=== PATIENT | male | born 1950 | race Hispanic/Latino ===

== ENCOUNTER 2018-08-28 18:58 | Inpatient (IN) ==
[2018-08-28 19:37] LABS: BASO# 0.05 X1000 (0.0-0.2); BASO% 0.5 % (0.0-0.8); EOS# 1.54 X1000 (0.0-0.7); HEMATOCRIT 42.8 % (42.0-52.0); HEMOGLOBIN 15.2 g/dL (14.0-18.0); IMM GRAN# 0.02 X1000 (0.0-0.04); IMM GRAN% 0.2 % (0.0-0.5); LYMPH# 3.16 X1000 (1.2-3.4); LYMPH% 30.9 % (20.5-51.1); MCH 30.1 PG (27-31); MCHC 35.5 g/dL (33-37); MCV 84.8 FL (81-99); MONO% 8.8 % (1.7-9.3); MPV 9.8 FL (7.4-10.4); NEUT# 4.57 X1000 (1.4-6.5); NEUT% 44.6 % (42.2-75.2); PLT 267 X1000 (130-400); RBC 5.05 XMIL (4.7-6.1); RDW 13.3 % (11.5-14.5); WBC 10.24 X1000 (4.8-10.8)
--- NOTE | 2018-08-28 19:50 | Diag Imaging Result Doc PS360 ---
EXAM: FLAT/UPRIGHT ABD/1 VIEW CHEST INDICATION: abd pain TECHNIQUE: 3 views COMPARISON: 06/10/2018 FINDINGS: There is advanced degenerative arthropathy throughout the spine. There are unremarkable bowel gas and stool patterns. There is no obstructive bowel pattern. There is no evidence of large volume free abdominal gas. There is no evidence of organomegaly. The lungs are grossly clear. There is no discrete pleural fluid collection or pneumothorax. The cardiomediastinal silhouette and central vasculature are grossly unremarkable. IMPRESSION: No evidence of acute pathology by plain radiograph. Electronically signed by Nikunj Greco 08/28/2018 7:48 PM
[2018-08-28 19:58] LABS: AGAP 13; ALBUMIN 4.3 g/dL (3.5-5.0); ALKALINE PHOSPHATASE 74 U/L (32-122); BUN 12 mg/dL (8-22); CALCIUM 8.9 mg/dL (8.8-10.2); CHLORIDE 94 mmol/L (98-107); COSMO 260; CREATININE 0.9 mg/dL (0.7-1.2); ESTIMATED GFR > 60; GLUCOSE 126 mg/dL (70-104); GOT 34 U/L (10-34); GPT 24 U/L (10-44); POTASSIUM 3.9 mmol/L (3.5-5.1); SODIUM 129 mmol/L (136-145); TCO2 23 mmol/L (25-35); TOTAL PROTEIN 7.4 g/dL (6.3-8.3)
[2018-08-28 21:25] LABS: BILIRUBIN URINE NEGATIVE (NEGATIVE); BLOOD URINE NEGATIVE (NEGATIVE); GLUCOSE URINE NEGATIVE (NEGATIVE); KETONE URINE NEGATIVE (NEGATIVE); LEUKOCYTES URINE TRACE (NEGATIVE); NITRITE URINE NEGATIVE (NEGATIVE); PROTEIN URINE NEGATIVE (NEGATIVE); UROBILINOGEN URINE NORMAL
[2018-08-28 21:26] LABS: CLARITY CLEAR (CLEAR); COLOR YELLOW
[2018-08-28 21:28] LABS: URINE BACTERIA 1+ /HFP; URINE EPITHELIAL CELLS <10 /HPF (<10); URINE WBC <10 /HPF (<10)
[2018-08-28 21:30] LABS: URINE CAST NONE SEEN /LPF; URINE CRYSTAL NONE SEEN /HPF; URINE SMALL ROUND CELLS RENAL PRESENT; URINE SOURCE CLEAN CATCH; URINE YEAST NONE SEEN /HPF
[2018-08-28] MEDS ORDERED: G.I. COCKTAIL PO ONE (21:49)
[2018-08-28] MEDS ORDERED: ZOFRAN IV ONE (21:49)
[2018-08-28] MEDS ORDERED: PEPCID IV ONE (21:49)
[2018-08-28] MEDS ORDERED: PROTONIX IV ONE (21:49)
[2018-08-28] MEDS ORDERED: SODIUM CHLORIDE 0.9% INJ ONE ×2 (21:49)
[2018-08-28] MEDS ORDERED: M.V.I.-12 10 ML, FOLIC ACID 1 MG, MAGNESIUM SULFATE 1 GM, THIAMINE 100 MG in NS 1,000 ML IV ONE (21:54)
[2018-08-28] MEDS ORDERED: ROCEPHIN 1 GM in NS 50 ML IV ONE (22:45)
--- NOTE | 2018-08-28 23:58 | PROVIDER DOCUMENTATION ---
This chart was entered by Sury Greco Scribe, acting as scribe for Percy Dumont MD. HPI-Abdominal Pain/GI Problem - General Chief Complaint: Abdominal Pain Stated Complaint: ETOH ABUSE/STOMACH PAIN, VOMITING Time Seen by Provider: 08/28/18 21:21 Source: patient, family Allergies/Adverse Reactions: Patient Allergies Allergy/AdvReac Type Severity Reaction Status Date / Time No Known Allergies Allergy Verified 06/10/18 15:22 Home Medications: Home Medication List Medication Instructions Recorded Confirmed Last Taken Type Amlodipine Besylate 10 mg PO DAILY 06/10/18 06/10/18 06/09/18 08:00 History Fluticasone Propionate 2 spray INH DAILY PRN 06/10/18 06/10/18 05/10/18 08:00 History Hydroxyzine HCl 50 mg PO Q6HR 06/10/18 06/10/18 06/10/18 08:00 History Pantoprazole Sodium 40 mg PO DAILY 06/10/18 06/10/18 06/10/18 08:00 History Quetiapine Fumarate 50 mg PO HS 06/10/18 06/10/18 06/09/18 21:00 History Trazodone [Desyrel] 100 - 200 mg PO HS 06/10/18 06/11/18 06/09/18 21:00 History Ibuprofen 800 mg PO TID PRN PRN #30 tab 06/11/18 Unknown Rx - History of Present Illness-ABD Nature of Presenting Problems: pt is a 67 yom that c/o generalized abd pain, urinary retention, constipation, and vx2 w/black emesis. pt had a small BM today that was yellow, but has had normal BM in 3 days. pt is a severe etoh abuser, has drank every day since 15 yo. drinks 12-15 gabriel beers/day. pt drinks and doesn't eat until late at night. pt has hx of cirrosis, htn, and preDM. pt has scope done 5 yrs ago, had spot. pt denies chf, pancreatitis and stents. Review of Systems - Adult - REVIEW OF SYSTEMS - ADULT Constitutional: reports: no symptoms reported. denies: chills, fever, fatique Eyes: reports: no symptoms reported Ears, Nose, Mouth & Throat: reports: no symptoms reported Cardiovascular: reports: no symptoms reported. denies: chest pain, orthopnea, palpitations Respiratory: reports: no symptoms reported. denies: cough, shortness of breath, wheezing Gastrointestinal: reports: see HPI, abdominal pain, constipation, vomiting (x2 black emesis today). denies: hematemesis, diarrhea, rectal bleeding Genitourinary: reports: see HPI, urinary retention. denies: dysuria, discharge, frequency Musculoskeletal: reports: no symptoms reported Integumentary: reports: no symptoms reported Neurological: reports: no symptoms reported Psychiatric: reports: no symptoms reported Endocrine: reports: no symptoms reported Hematologic/Lymphatic: reports: no symptoms reported Allergic/Immunologic: reports: no symptoms reported All Other Systems: Reviewed and Negative Past History - Adult - PAST MEDICAL HISTORY-ADULT Review of Records: reports: Old Records Reviewed, Nursing Assessment Review, Me dications Reviewed, Social history reviewed & non-contributory. Major Childhood Illnesses: reports: denies history Cardiovascular: reports: denies history Respiratory: reports: denies history Gastrointestinal: reports: liver disease Obstetrical/Gynecological: reports: denies history Genitourinary: reports: denies history Musculoskeletal: reports: denies history Neurological: reports: denies history Endocrine/Immune: reports: denies history Other Conditions: reports: denies history - PRIOR SURGERIES/PROCEDURES Surgical/Procedure History: reports: other - IMMUNIZATION STATUS Childhood Immunizations: See Nurse Assessment Flu Vaccine: See Nurse Assessment - FAMILY HISTORY Family History: reviewed, not pertinent - SOCIAL HISTORY Smoking: cigarettes, less than 1 pack/day Provider spent 3-5 mins advising pt. on dangers of tobacco.: Discussed manners to quit use, and f/u contacts for add'l counseling. Substance Use: alcohol Alcohol Use Frequency: every day Number of drinks per typical drinking period:: 11-15 drinks Physical Exam-General - PHYSICAL EXAM-ADULT Initial Vital Signs Reviewed: Yes - CONSTITUTIONAL General Appearance: appears well, alert, no apparent distress - EYES Eyes: PERRL/EOMI, pink conjunctivae - HEAD, EARS, NOSE, MOUTH & THROAT HENMT: normocephalic/atraumatic, moist mucous membranes, normal ENT inspection - NECK Neck: non-tender, full range of motion, supple, normal inspection - RESPIRATORY Respiratory: chest non-tender, lungs clear, normal breath sounds - CARDIOVASCULAR Cardiovascular: normal peripheral pulses, regular rate, rhythm - GASTROINTESTINAL (ABDOMEN) Abdominal Exam: normal bowel sounds, soft, no organomegaly, no pulsatile mass, tenderness (moderate upper abd tenderness to palp, minimal rlq tenderness to palp). negative: non tender, guarding, rigid, rebound - LYMPHATIC Lymphatic: no adenopathy - MUSCULOSKELETAL Back Exam: normal inspection, no CVA tenderness, no vertebral tenderness Extremity: normal range of motion, non-tender, normal inspection Peripheral Pulses: radial (R): 2+, radial (L): 2+ - SKIN Integumentary: normal color, normal turgor, warm/dry - NEUROLOGIC Neurologic: grossly normal, no motor/sensory deficits - PSYCHIATRIC Psych/Mental Status: normal mood/affect, normal thought content, normal thought process, oriented x 3 Progress - PLAN OF CARE/RESULTS Progress/Plan/Lab Results: Vital Signs - 8 hr 08/28/18 19:11 Temperature 98.0 F Pulse Rate 67 Respiratory Rate 18 Blood Pressure 111/75 O2 Sat by Pulse Oximetry 93 L Laboratory Results - last 24 hr 08/28/18 08/28/18 08/28/18 19:20 19:20 19:20 WBC 10.24 RBC 5.05 Hgb 15.2 Hct 42.8 MCV 84.8 MCH 30.1 MCHC 35.5 RDW Std Deviation 13.3 Plt Count 267 MPV 9.8 Immature Gran % (Auto) 0.2 Neut % (Auto) 44.6 Lymph % (Auto) 30.9 [place] % (Auto) 8.8 Eos % (Auto) 15.0 H Baso % (Auto) 0.5 Immature Gran # (Auto) 0.02 Neut # (Auto) 4.57 Lymph # (Auto) 3.16 [place] # (Auto) 0.90 H Eos # (Auto) 1.54 H Baso # (Auto) 0.05 Sodium 129 L Potassium 3.9 Chloride 94 L Carbon Dioxide 23 L Anion Gap 13 BUN 12 Creatinine 0.9 Estimated GFR/1.73 m2 > 60 BUN/Creatinine Ratio 13 Glucose 126 H Calculated Osmolality 260 Calcium 8.9 Total Bilirubin 0.40 AST 34 ALT 24 Alkaline Phosphatase 74 Total Protein 7.4 Albumin 4.3 Globulin 3.0 Albumin/Globulin Ratio 1.0 Amylase 53 Lipase Urine Source Urine Color Urine Clarity Urine pH Ur Specific [place] Urine Protein Urine Ketones Urine Blood Urine Nitrite Urine Bilirubin Urine Urobilinogen Urine Microscopic RBC Urine WBC Urine Microscopic WBC Ur Epithelial Cells Urine Crystals Small Round Cells Urine Bacteria Urine Casts Urine Yeast Urine Glucose 08/28/18 08/28/18 19:20 21:04 WBC RBC Hgb Hct MCV MCH MCHC RDW Std Deviation Plt Count MPV Immature Gran % (Auto) Neut % (Auto) Lymph % (Auto) [place] % (Auto) Eos % (Auto) Baso % (Auto) Immature Gran # (Auto) Neut # (Auto) Lymph # (Auto) [place] # (Auto) Eos # (Auto) Baso # (Auto) Sodium Potassium Chloride Carbon Dioxide Anion Gap BUN Creatinine Estimated GFR/1.73 m2 BUN/Creatinine Ratio Glucose Calculated Osmolality Calcium Total Bilirubin AST ALT Alkaline Phosphatase Total Protein Albumin Globulin Albumin/Globulin Ratio Amylase Lipase 46 Urine Source CLEAN CATCH Urine Color YELLOW Urine Clarity CLEAR Urine pH 5.0 Ur Specific [place] 1.010 Urine Protein NEGATIVE Urine Ketones NEGATIVE Urine Blood NEGATIVE Urine Nitrite NEGATIVE Urine Bilirubin NEGATIVE Urine Urobilinogen NORMAL Urine Microscopic RBC Not Reportable Urine WBC TRACE A Urine Microscopic WBC <10 Ur Epithelial Cells <10 Urine Crystals NONE SEEN Small Round Cells RENAL PRESENT Urine Bacteria 1+ Urine Casts NONE SEEN Urine Yeast NONE SEEN Urine Glucose NEGATIVE Orders Category Date Time Status NPO Except MEDICATIONS Diet 08/28/18 19:[address] ABD/PELVIS W/IV CONT ONLY [CT] Stat Exams 08/28/18 21:51 Ordered flat [FLAT/UPRIGHT ABD/1 VIEW CHEST] [RAD] Stat Exams 08/28/18 19:19 Completed AMYLASE [CHEM] Stat Lab 08/28/18 19:20 Completed CBC WITH DIFF [HEME] Stat Lab 08/28/18 19:20 Completed COMPREHENSIVE METABOLIC PANEL [CHEM] Stat Lab 08/28/18 19:20 Completed LIPASE [CHEM] Stat Lab 08/28/18 19:20 Completed OCCULT BLOOD NON-FECES Stat Lab 08/28/18 21:54 Uncollected TYPE & SCREEN [BBK] Stat Lab 08/28/18 21:[address] W/POSS RFLX CULT [URINALYSIS] Stat Lab 08/28/18 21:04 Completed URINE CULTURE [RM] Routine Lab 08/28/18 21:30 Ordered Famotidine [Pepcid] Med 08/28/18 21:49 Discontinued 20 mg IV NOW ONE Lido/Estrada Alk/Al&mg Hydrox [G.i. Cocktail] Med 08/28/18 21:49 Discontinued 30 ml PO NOW ONE Mvi [M.v.i.-12] 10 ml Med 08/28/18 21:54 Active Folic Acid 1 mg Magnesium Sulfate 1 gm Thiamine 100 mg 0.9% Sodium Chloride Inj [Ns] 1,000 ml IV NOW Ondansetron [Zofran] Med 08/28/18 21:49 Discontinued 4 mg IV NOW ONE Pantoprazole [Protonix] Med 08/28/18 21:49 Discontinued 40 mg IV NOW ONE Sodium Chloride 0.9% Med 08/28/18 21:49 Discontinued 10 ml INJ NOW ONE Sodium Chloride 0.9% Med 08/28/18 21:49 Discontinued 5 - 10 ml INJ NOW ONE Result Diagrams: 08/28/18 19:20 08/28/18 19:20 - CONSULTS/PCP/HOSPITALIST Notification #1 *Consult/PCP/Hospitalist*: Dr. Mendoza Time Discussed: 23:28 Consult Disposition: Admit (Dr. Dumont discussed pt w/Dr. mendoza.) #2 Consult: Dr. bernal Time Discussed: 23:41 Consult Disposition: Admit, other (WILL CONSULT) Departure - Departure Date of Disposition Decision: 08/28/18 Time of Disposition Decision: 23:56 DIAGNOSIS: Abdominal pain, Upper GI bleed, Chronic alcohol dependence, continuous Disposition: ADMITTED INPATIENT 09 Certified Medical Emergency: Emergent Condition: Stable Referrals and Follow-Ups: Yoel Rivero CRNP [Primary Care Provider] - - Critical Care Note This patient required my direct & personal management of CC.: No Attestation - Physician/ TRAMAINE Attestation Patient care was provided by Advanced Practice Provider:: No The physician spent face to face time with patient:: Yes Advanced Practice Provider documentation review:: Supervising physician onsite and consulted in the evaluation and care of this patient. The physician did have a face to face encounter with the patient. This chart was documented by the indicated scribe, (Sury Greco Scribe) and accurately reflects the services I performed and decisions made by me, Percy Dumont MD, as attested by the provider's signature.
[2018-08-29] MEDS ORDERED: NS 1,000 ML IV ONE (03:16)
[2018-08-29] MEDS ORDERED: ZOFRAN IV PRN (03:16)
[2018-08-29] MEDS ORDERED: MORPHINE IV PRN ×2 (03:16→06:40)
[2018-08-29 04:40] LABS: UR AMPHETAMINES QUAL PRESUMPTIVE POSITIVE (NONE DETECT); UR BARBITUATES QUAL NONE DETECTED (NONE DETECT); UR BENZODIAZEPIN QUAL PRESUMPTIVE POSITIVE (NONE DETECT); UR CANNABINOIDS QUAL NONE DETECTED (NONE DETECT); UR COCAINE QUAL NONE DETECTED (NONE DETECT); UR METHADONE QUAL NONE DETECTED (NONE DETECT); UR METHAMPHETAMINE QUAL PRESUMPTIVE POSITIVE (NONE DETECT); UR OPIATES QUAL NONE DETECTED (NONE DETECT); UR OXYCODONE QUAL NONE DETECTED (NONE DETECT); UR PCP QUAL PRESUMPTIVE POSITIVE (NONE DETECT); UR PROPOXYPHENE QUAL NONE DETECTED (NONE DETECT); UR TCA QUAL NONE DETECTED (NONE DETECT)
[2018-08-29 05:28] LABS: INR 0.92; PROTIME 12.8 Seconds (11.0-16.0)
[2018-08-29 05:29] LABS: PTT 28.7 Seconds (22.3-41.8)
[2018-08-29 05:34] LABS: HEMATOCRIT 40.9 % (42.0-52.0); HEMOGLOBIN 14.4 g/dL (14.0-18.0)
[2018-08-29 06:14] LABS: AGAP 12; CHLORIDE 103 mmol/L (98-107); GLUCOSE 96 mg/dL (70-104); POTASSIUM 3.7 mmol/L (3.5-5.1); SODIUM 139 mmol/L (136-145); TCO2 24 mmol/L (25-35)
[2018-08-29 06:15] LABS: ALB/GLOB RATIO 1.6; ALBUMIN 3.9 g/dL (3.5-5.0); ALKALINE PHOSPHATASE 60 U/L (32-122); BUN 11 mg/dL (8-22); CALCIUM 8.4 mg/dL (8.8-10.2); COSMO 277; CREATININE 0.9 mg/dL (0.7-1.2); ESTIMATED GFR > 60; GOT 26 U/L (10-34); GPT 20 U/L (10-44); MAGNESIUM 1.9 mg/dL (1.5-2.7); TOTAL BILIRUBIN 0.32 mg/dL (0.20-1.00); TOTAL PROTEIN 6.3 g/dL (6.3-8.3)
[2018-08-29] MEDS ORDERED: NICODERM PATCH TD PRN (06:35)
--- NOTE | 2018-08-29 09:24 | Diag Imaging Result Doc PS360 ---
EXAM: CT ABD/PELVIS W/IV CONT ONLY INDICATION: UPPER AND RLQ PAIN/TENDER TECHNIQUE: This exam was performed using automated exposure control, adjustment of mA or kV according to patient size, and/or use of iterative reconstruction technique. COMPARISON: None. FINDINGS: The gallbladder is contracted and is unremarkable, otherwise. The liver, spleen, pancreas, adrenal glands, kidneys, and urinary bladder are essentially unremarkable. The appendix is not well seen. However, there is no sign of appendicitis. There is minimal stranding associated with the ascending colon suggesting very mild colitis. There is very little if any wall thickening. There is no obstructive bowel pattern. The remainder of the GI tract is grossly unremarkable. There is moderate aortoiliac atherosclerotic calcification. There is multilevel spondylosis. There is no evidence of acute osseous abnormality. IMPRESSION: Very subtle inflammatory stranding associated with the ascending colon suggesting nonspecific mild colitis, probably infectious. Please correlate clinically. Electronically signed by Nikunj Greco 08/29/2018 9:22 AM
[2018-08-29] MEDS: NEXIUM IV SCH ×2 (09:46→21:51)
[2018-08-29] MEDS: LIBRIUM PO SCH ×3 (09:46→21:51)
[2018-08-29 10:43] LABS: HEMATOCRIT 40.5 % (42.0-52.0); HEMOGLOBIN 14.2 g/dL (14.0-18.0)
[2018-08-29 12:49] LABS: HEMATOCRIT 42.7 % (42.0-52.0); HEMOGLOBIN 14.6 g/dL (14.0-18.0)
[2018-08-29 17:27] LABS: HEMATOCRIT 41.4 % (42.0-52.0); HEMOGLOBIN 14.4 g/dL (14.0-18.0)
--- NOTE | 2018-08-29 21:38 | EKG Report ---
Test Performed on : 08/29/2018 09:11:12 AM Test Reason : Epigastric Pain/ Chest Pain Blood Pressure : / mmHG Vent. Rate : 053 BPM Atrial Rate : 053 BPM P-R Int : 134 ms QRS Dur : 082 ms QT Int : 474 ms P-R-T Axes : 038 -25 015 degrees QTc Int : 444 ms Sinus bradycardia. Otherwise normal ECG When compared with ECG of 10-JUN-2018 21:35, No significant change was found Confirmed by Roberto Gonzalez MD ([id number]) on 08/30/2018 12:28:30 PM
[2018-08-29] MEDS: ATIVAN IV PRN (21:43)
[2018-08-30] MEDS: LIBRIUM PO SCH ×4 (03:02→21:50)
[2018-08-30 07:12] LABS: HEMATOCRIT 42.6 % (42.0-52.0); HEMOGLOBIN 14.4 g/dL (14.0-18.0); MCH 30.6 PG (27-31); MCHC 33.8 g/dL (33-37); MCV 90.4 FL (81-99); MPV 10.1 FL (7.4-10.4); RBC 4.71 XMIL (4.7-6.1)
[2018-08-30 07:30] LABS: AGAP 10; BUN 7 mg/dL (8-22); CALCIUM 8.6 mg/dL (8.8-10.2); CHLORIDE 106 mmol/L (98-107); COSMO 276; CREATININE 0.8 mg/dL (0.7-1.2); ESTIMATED GFR > 60; GLUCOSE 101 mg/dL (70-104); POTASSIUM 3.8 mmol/L (3.5-5.1); SODIUM 139 mmol/L (136-145); TCO2 23 mmol/L (25-35)
[2018-08-30] MEDS: NEXIUM IV SCH ×2 (10:11→21:50)
--- NOTE | 2018-08-30 12:25 | HISTORY AND PHYSICAL ---
CHIEF COMPLAINT: Abdominal pain. HISTORY OF PRESENT ILLNESS: Mr. Dai is a 67-year-old male who presented to the ER on 08/28/2018 with complaints of abdominal pain and coffee-ground emesis. The patient states that approximately 3 days ago, he began having what was initially right and left lower quadrant abdominal pain that he states now is more in his epigastric area. He states that he still has some generalized soreness, though the pain at this time is in the epigastric area. He describes it as sharp and intermittent. He also reports that he has had nausea and has also had coffee- ground emesis as well. He reports a sore throat, but this may be secondary to his vomiting episodes. He also reports some dizziness as well. The patient did report that he had had some constipation though this has subsided. He states that he has had a recent bowel movement. He denies any hematochezia or melena. He did report that he felt as though he was having some difficulty urinating but states that he has been urinating fine at this time. He denies any shortness of breath, chest pain or cough. The patient does report that he has some occasional swelling in his lower extremities though this is not present or has not worsened at this time. He does have nicotine and alcohol abuse. He smokes currently half a pack of cigarettes per day. He also drinks daily as well, reporting that he drinks approximately 12 to 15 beers a day. The patient has been abusing alcohol since he was a teenager. He also reports that he has been told that he has cirrhosis of the liver. He does report also that he has had previous abdominal surgeries for bowel obstruction. Upon evaluation in the ER, the patient was noted to have some abdominal tenderness on his right upper and lower abdomen. Given this, initially an abdominal x-ray was performed that showed no evidence of acute pathology, but they did perform a CT abdomen and pelvis without contrast only, the overnight radiologist reported it to show some mild thickening of the ascending colon and cecum. This could be associated with underlying infectious or inflammatory colitis. There was no bowel obstruction. There was no evidence of appendicitis. His hemoglobin and hematocrit are stable at this time. Most recent readings were 14.4 and 40.9. His electrolytes are sodium 129, potassium 3.9, chloride 94, magnesium 1.4, though since this time, the patient has received a banana bag. He is also receiving fluid hydration with normal saline 100 mL per hour. The patient had been complaining of intermittent left chest pain that radiated across to his right chest and down his bilateral arms that has been ongoing for a few months now. He states that when it comes on, it is sharp. He states this comes on when he is at rest or exerting himself. We will add on a EKG and troponin for further check of this. The patient is denying any chest pain at present. REVIEW OF SYSTEMS: A 14-point review of systems was conducted with the patient and all were negative except for positives mentioned above in HPI. PAST MEDICAL HISTORY: 1. Hypertension. 2. Gastroesophageal reflux disease. 3. Insomnia. 4. Chronic back pain. 5. Anxiety. PAST SURGICAL HISTORY: Reported history of abdominal surgeries secondary to bowel obstructions x3. SOCIAL HISTORY: The patient is a current every day smoker and smokes currently half pack of cigarettes per day. He does report that he abuses alcohol daily. He drinks 15 beers a day and has been drinking since he was a teenager though I do not think that he has been drinking that amount daily since that age. He does report a previous history of drug abuse with pain pills but denies any at this time. The patient reports that he was born in [place] but was adopted and that is how he ended up in the [facility]. He is from [place] and has recently relocated here within the last year. FAMILY HISTORY: The patient does not know any of his biological family history due to he is adopted. ALLERGIES: Patient has no known allergies. HOME MEDICATIONS: We are awaiting the patient's home medication list to be updated and verified though when he was just recently discharged in May 2018, he was discharged home with: 1. Hydroxyzine 50 mg 6 hours. 2. Seroquel 50 mg p.o. at bedtime. 3. Amlodipine 10 mg p.o. daily. 4. Protonix 40 mg p.o. daily. 5. Trazodone 100 mg p.o. at bedtime. We are awaiting his medications to be reconciled at this time. DIAGNOSTIC DATA: White blood cell count is 10,240, hemoglobin 15.2, hematocrit 32.8, with the most recent hemoglobin being 14.4 and hematocrit 40.9, platelet count 267,000. PT 12.8, INR 0.92, PTT 28. Sodium 129, potassium 3.9, chloride 94, serum bicarb 23, BUN 12, creatinine 0.9, GFR greater than 60, glucose 126, calcium 8.9, magnesium 1.4. Liver function tests are within normal limits. Troponin is less than 0.01. Amylase 53, lipase 46. Urinalysis was obtained via clean catch which was positive for trace white blood cells though was negative for protein, ketones, blood, nitrites. Urine drug screen was positive for phencyclidine, amphetamines, methamphetamines, and benzodiazepines. EKG showed sinus bradycardia at a rate of 53 with a QTC of 444. Abdomen x-ray with 1 view chest showed no evidence of acute pathology. This is per Radiology. CT abdomen and pelvis without contrast only showed mild thickening of the ascending colon and cecum. This can be associated with underlying infectious and/or inflammatory colitis but there is no bowel obstruction, no evidence of ascites. PHYSICAL EXAMINATION: VITAL SIGNS: Temperature 97.6, heart rate 59, respirations 19, blood pressure 115/67 with oxygen saturation of 97% on room air. on room air. GENERAL: Mr. Dai is a pleasant, 87-year-old male who is resting on the inpatient bed. He was in no acute distress. He was awake and alert, and able to answer questions appropriately. HEENT: Head is atraumatic and normocephalic. Pupils are equal, round, and reactive to light, 3 mm bilaterally and brisk. Oral mucosa was moist. Oropharynx was clear. NECK: Supple. Trachea midline. CARDIOVASCULAR: The patient has S1-S2 present. No murmurs, gallops, rubs appreciated with a regular rate and rhythm. PULMONARY: The patient has symmetrical chest expansion bilaterally. Lung sounds clear to auscultation in bilateral full mejia. ABDOMEN: Soft though does appear to be slightly distended. Bowel sounds are present in all 4 quadrants, slightly hypoactive. The patient did have some generalized tenderness noted but this is mainly in the epigastric and right upper quadrant. EXTREMITIES: No cyanosis or edema noted. Pulse, motor, and sensory are intact in all extremities. Radial and pedal pulses were 3+ bilaterally. INTEGUMENTARY: The patient's skin is pink, warm, and dry. NEUROLOGIC: The patient is alert and oriented to person, place, time and situation. He is able to move all extremities. There were no focal neurologic deficits noted. ASSESSMENT: 1. Possible upper gastrointestinal bleeding. The patient did report that he has been having coffee-ground emesis as well as indigestion and epigastric pain. He does have a history of daily alcohol abuse and has reportedly in the past been told that he has cirrhosis of the liver. For further treatment and evaluation of this, we will place the patient on a clear liquid diet at this time. He has not had any active vomiting since arrival to the ER. We will go ahead and place him with Nexium 40 mg q.12 hours. We will provide some gentle intravenous fluid hydration with normal saline at 100 mL per hour. We have placed a consult with Gastroenterology and will await their evaluation and further recommendations for management. 2. Nausea and vomiting. As previously mentioned, the patient is receiving p.r.n. antiemetics. We will provide some IV hydration. 3. Alcohol abuse. The patient reports he drinks 15 beers a day. He has been counseled on the importance of him stopping drinking, especially given his reported symptoms as well as history of liver disease. The patient states understanding and does express that he does want to quit drinking. We will go ahead and place him with Librium 25 mg p.o. q.6 hours. We have also placed him on p.r.n. Ativan as needed. We will continue to monitor this closely. 4. Deep venous thrombosis prophylaxis provided with sequential compression devices. 5. Nicotine dependence. The patient was also counseled on the importance of smoking cessation. While he is admitted, we will provide a nicotine patch. We will continue to alcohol and drug counselor him on smoking cessation during his admission and upon discharge. He has been placed on the medical floor telemetry. He will have vital signs q.4 hours. We will do strict intake and output. Repeat a CBC and CMP this morning. Further orders and recommendations pending hospital course, diagnostic studies, and physician evaluation. Dictated by ZORAIDA Deihl for Bay Mendoza MD cc: Bay Mendoza MD
--- NOTE | 2018-08-30 14:37 | PROGRESS NOTE ---
DATE: 08/30/2018 SUBJECTIVE: The patient reports feeling fine. No more episodes of black stools. Eating okay. OBJECTIVE: Vital Signs: Temperature 98.8 degrees, heart rate 58, respiratory rate 17, blood pressure 110/85, O2 saturation 98% on room air. General: This is a chronically ill-appearing, 67- year-old male, lying in bed, in no acute distress. Cardiovascular: S1, S2 heard. No murmurs, gallops, or rubs. Regular rate and rhythm. Respiratory: Clear bilaterally to auscultation. No work of breathing or using accessory muscles. Abdomen: Soft. A little bit distended. Bowel sounds present. No organomegaly. Extremities: No clubbing, cyanosis, or edema. Peripheral pulses present in both legs. Neurological: Patient alert and oriented x3. Moves 4 extremities. LABORATORY DATA: Reviewed. ASSESSMENT AND PLAN: 1. Possible upper gastrointestinal bleeding. The patient reports coffee-ground emesis and indigestion and epigastric pain. Because of history of daily alcohol abuse, he was admitted to the hospital. So far, his hemoglobin has been stable. We have consulted Gastroenterology for this patient. We will see what they have to say. In the meantime, we will continue with Nexium 40 mg IV q.12 hours. 2. Intractable nausea and vomiting. That is resolved. Patient is eating perfectly fine. 3. Alcohol abuse. The patient is on Librium 25 mg p.o. q.6 hours. 4. Deep vein thrombosis prophylaxis. The patient is on SCDs. 5. Nicotine dependence. Patient has nicotine patch. 6. Disposition. We are awaiting GI evaluation. If they are okay, we will release this patient. cc: Jc Avendano MD
[2018-08-30] MEDS: ATIVAN IV PRN ×2 (17:45→21:50)
[2018-08-30] MEDS: SODIUM CHLORIDE 0.9% INJ SCH (21:50)
[2018-08-31] MEDS: LIBRIUM PO SCH ×2 (06:08→10:51)
[2018-08-31 07:13] LABS: HEMATOCRIT 42.8 % (42.0-52.0); HEMOGLOBIN 14.7 g/dL (14.0-18.0); MCHC 34.3 g/dL (33-37); MCV 90.3 FL (81-99); MPV 10.2 FL (7.4-10.4); RBC 4.74 XMIL (4.7-6.1); WBC 10.86 X1000 (4.8-10.8)
[2018-08-31 07:31] LABS: AGAP 11; BUN 8 mg/dL (8-22); CALCIUM 8.2 mg/dL (8.8-10.2); CHLORIDE 106 mmol/L (98-107); COSMO 276; CREATININE 0.8 mg/dL (0.7-1.2); ESTIMATED GFR > 60; GLUCOSE 108 mg/dL (70-104); POTASSIUM 3.8 mmol/L (3.5-5.1); SODIUM 139 mmol/L (136-145); TCO2 22 mmol/L (25-35)
[2018-08-31] MEDS ORDERED: XYLOCAINE-MPF 2% ONE (08:19)
[2018-08-31] MEDS ORDERED: DIPRIVAN 1% ONE (08:19)
--- NOTE | 2018-08-31 09:41 | ENDOSCOPY OPERATIVE NOTE ---
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 PROCEDURE PERFORMED: EGD, diagnostic MEDICATIONS: Per Anesthesia TOPICAL ANESTHETIC: none CONSENT: The patient understands the risks and benefits of the procedure and understands that these r isks include, but are not limited to: sedation, allergic reaction, infection, perforation and/or bleeding. Alternative means of evaluation and treatment include, among others: physical exam, x-rays, and/or surgical intervention. The patient elects to proceed with this endoscopic procedure. HISORY AND PHYSICAL: 08/31/2018 function. Hand hygiene and appropriate measures for infection prevention was taken. After the risks, benefits and alternatives of the procedure were thoroughly explained, Informed consent was verified, confirmed and timeout was successfully executed by the treatment team. The patient was anesthetized with topical anesthesia and the endoscope was introduced through the mouth and advanced to the second portion of the duodenum. Retroflexion wa s performed in the stomach and revealed a hiatal hernia. The gastroscope was then slowly withdrawn and removed. ESOPHAGUS: Z line 40 cms approximately. A 2 cm hiatal hernia was noted. STOMACH: Mild non-erosive gastritis (inflammation) was found in the gastric antrum. DUODENUM: The duodenal mucosa showed no abnormalities in the 1st part of the duodenum, duodenal bulb, and 2nd part duodenum. SPECIMENS REMOVED: No ADVERSE EVENTS: There were no complications. POSTOPERATIVE DIAGNOSIS: 1. Z line 40 cms approximately 2. 2 cm hiatal hernia 3. Non-erosive gastritis (inflammation) was found in the gastric antrum 4. The duodenal mucosa showed no abnormalities in the 1st part of the duodenum, duodenal bulb, and 2 nd part duodenum RECOMMENDATIONS: 1. Begin an anti-reflux lifestyle: avoid acidic foods and drinks (like coffee a nd soda), do not lie down three hours after eating, elevate the head of your bed 6 to 9 inches, stop smokiing and redu ce weight if needed. 2. Avoid Alcohol and Return to clinic in 4 weeks for follow up and possible breath test. 3. Continue PPI Once daily for 3 months REPEAT EXAM: Eliseo Dejesus MD eSigned: Eliseo Dejesus MD 08/31/2018 9:40 AM cc: PATIENT NAME: Kieran Dai MR#: [id number]
[2018-08-31] MEDS: NEXIUM IV SCH (10:51)
[2018-08-31] MEDS: ATIVAN IV PRN (10:51)
[2018-08-31] MEDS: SODIUM CHLORIDE 0.9% INJ SCH (10:51)
[2018-08-31 11:52] VITALS: BP 127/90
--- NOTE | 2018-09-01 12:50 | DISCHARGE SUMMARY ---
ADMISSION DATE: 08/29/2018 DISCHARGE DATE: 08/31/2018 DISCHARGE DIAGNOSES: 1. Gastrointestinal bleeding, resolved. 2. Nonerosive gastritis. 3. Active alcohol abuse. 4. Nausea and vomiting, resolved. 5. Nicotine dependence. CONSULTATION: Dr. Dejesus from GI. PROCEDURES: 1. CT of abdomen and pelvis showed very subtle inflammatory stranding associated with the ascending colon suggesting nonspecific mild colitis, probably infectious. 2. Upper endoscopy showed a 2 cm hiatal hernia with nonerosive gastritis in the gastric antrum. Duodenal mucosa showed normal abnormalities in the 1st part of the duodenum, duodenal bulb and 2nd part of the duodenum as well. HOSPITAL COURSE: In brief this is a 67-year-old male who presented to the ER complaining of abdominal pain and coffee-grounds emesis. That problem started approximately 3 days ago. Patient has no history of alcoholism. That is the reason why he is he was admitted to the hospital. GI was consulted. They performed procedures as above. Laboratory lehman, the hemoglobin has been stable so far, so the recommendations at discharge was to continue with omeprazole that he is taking actually 40 mg p.o. for next 3 months. The patient is recommended to have a followup with Dr. Dejesus in 3 months. Patient is being discharged in stable condition. DISCHARGE PHYSICAL EXAMINATION: Vital signs: Temperature 98.2 degrees, heart rate 61, respiratory rate 20, blood pressure 127/90, O2 saturation 97% on room air. General: This is a chronically ill-appearing and looking older than his stated age. A 67-year-old male, lying in bed, in no acute distress. Cardiovascular: S1, S2 heard. No murmurs, gallops, or rubs. Regular rate and rhythm. Respiratory: Clear bilaterally to auscultation. No work of breathing or using accessory muscles. Abdomen: Soft, nontender to palpation. Bowel sounds present. No organomegaly. Extremities: No clubbing, cyanosis, or edema. Peripheral pulses present in both legs. Neurological: The patient alert and oriented x3. Moves 4 extremities. DISCHARGE DISPOSITION: Home to self-care. LIST OF MEDICATIONS: Omeprazole 40 mg p.o. daily for 3 months. FOLLOWUP: Follow up with Dr. Dejesus in 3 weeks. TIME SPENT: Discharge time, 33 minutes. cc: Jc Avendano MD
== END 2018-08-31 14:45 | disposition home or self-care (01) | DRG 379 ==
LOC: P.ED 18:58 → 3N 08-29 02:12 → SUATTDRO 08-29 02:12 → 3N 08-29 02:48
PROVIDERS: ATTEND Internal Medicine
CPT/HCPCS: 74022; 74177; 80048; 80053; 80104; 80301; 80305; 80307; 80320; 81001; 81596; 82055; 82150; 83690; 83735; 84484; 85014; 85018; 85025; 85027; 85610; 85730; 86850; 86900; 86901; 87088; 87522; 93005; 93010; 94761; 94799; A9270; C9113; G0431; G0434; G0477; G0480; G6040; J0696; J2060; J2270; J2405; J3411; J3475; J7030; Q9967; S0028; S0164

== ENCOUNTER 2018-11-28 17:46 | Inpatient (IN) ==
[2018-11-28 18:26] LABS: BASO# 0.03 X1000 (0.0-0.2); BASO% 0.3 % (0.0-0.8); EOS# 0.77 X1000 (0.0-0.7); EOS% 7.2 % (0.0-10.0); HEMATOCRIT 41.4 % (42.0-52.0); HEMOGLOBIN 14.7 g/dL (14.0-18.0); IMM GRAN# 0.02 X1000 (0.0-0.04); IMM GRAN% 0.2 % (0.0-0.5); LYMPH# 2.82 X1000 (1.2-3.4); LYMPH% 26.3 % (20.5-51.1); MCH 29.8 PG (27-31); MCHC 35.5 g/dL (33-37); MCV 83.8 FL (81-99); MONO# 1.22 X1000 (0.11-0.59); MONO% 11.4 % (1.7-9.3); MPV 9.8 FL (7.4-10.4); NEUT# 5.86 X1000 (1.4-6.5); NEUT% 54.6 % (42.2-75.2); PLT 239 X1000 (130-400); RBC 4.94 XMIL (4.7-6.1); RDW 13.8 % (11.5-14.5); WBC 10.72 X1000 (4.8-10.8)
[2018-11-28] MEDS ORDERED: ZOFRAN IM ONE (18:31)
[2018-11-28] MEDS ORDERED: G.I. COCKTAIL PO ONE (18:32)
[2018-11-28 18:41] LABS: INR 0.94
[2018-11-28 18:52] LABS: ESTIMATED GFR > 60
[2018-11-28 19:18] LABS: AGAP 22; ALBUMIN 4.7 g/dL (3.5-5.0); ALKALINE PHOSPHATASE 81 U/L (32-122); BUN 6 mg/dL (8-22); CALCIUM 9.4 mg/dL (8.8-10.2); CHLORIDE 86 mmol/L (98-107); COSMO 253; CREATININE 0.6 mg/dL (0.7-1.2); GLUCOSE 101 mg/dL (70-104); GOT 47 U/L (10-34); GPT 23 U/L (10-44); LIPASE 24 U/L (13-60); POTASSIUM 3.3 mmol/L (3.5-5.1); SODIUM 127 mmol/L (136-145); TCO2 20 mmol/L (25-35); TOTAL PROTEIN 7.7 g/dL (6.3-8.3)
[2018-11-28 19:34] LABS: CK-MB 14.94 ng/mL (0.0-5.0)
[2018-11-28] MEDS ORDERED: ZOFRAN IV ONE (20:16)
[2018-11-28] MEDS ORDERED: DILAUDID IV ONE (21:18)
[2018-11-28] MEDS ORDERED: ATIVAN IV ONE (21:18)
--- NOTE | 2018-11-28 21:29 | Diag Imaging Result Doc PS360 ---
EXAM: CT ABD/PELVIS W/IV CONT ONLY INDICATION: abdominal pain TECHNIQUE: This exam was performed using automated exposure control, adjustment of mA or kV according to patient size, and/or use of iterative reconstruction technique. COMPARISON: None. FINDINGS: There is questionable very minimal hepatic steatosis. The liver is unremarkable, otherwise. The gallbladder, spleen, pancreas, adrenal glands, kidneys, and urinary bladder are essentially unremarkable. The appendix is not clearly identified. There is no secondary sign of appendicitis. There is no focal bowel wall thickening identified and there is no obstructive bowel pattern. The remainder of the GI tract is essentially unremarkable. No focal inflammatory changes, free abdominal gas, or free fluid is appreciated. There is multilevel spondylosis. There is no evidence of acute osseous abnormality. There is aortoiliac atherosclerotic calcification with no evidence of aortic aneurysm. IMPRESSION: Incidental/nonacute findings detailed above. No definite acute pathology by CT. Electronically signed by Nikunj Greco 11/28/2018 9:27 PM
[2018-11-28] MEDS ORDERED: NS 1,000 ML IV ONE ×2 (21:54→22:19)
[2018-11-28] MEDS ORDERED: PROTONIX IV ONE (21:54)
[2018-11-28] MEDS ORDERED: SODIUM CHLORIDE 0.9% INJ ONE (21:54)
--- NOTE | 2018-11-28 21:54 | PROVIDER DOCUMENTATION ---
This chart was entered by Sherine Grossman Scribe, acting as scribe for Errol Bowser MD. HPI-Abdominal Pain/GI Problem - General Chief Complaint: Abdominal Pain Stated Complaint: ABD PAIN Time Seen by Provider: 11/28/18 18:16 Source: patient Allergies/Adverse Reactions: Patient Allergies Allergy/AdvReac Type Severity Reaction Status Date / Time No Known Allergies Allergy Verified 11/28/18 18:37 Home Medications: Home Medication List Medication Instructions Recorded Confirmed Last Taken Type Amlodipine Besylate 10 mg PO DAILY 06/10/18 11/28/18 06/09/18 08:00 History Fluticasone Propionate 2 spray INH DAILY PRN 06/10/18 11/28/18 05/10/18 08:00 History Hydroxyzine HCl 50 mg PO Q6HR 06/10/18 11/28/18 06/10/18 08:00 History Pantoprazole Sodium 40 mg PO DAILY 06/10/18 11/28/18 06/10/18 08:00 History Quetiapine Fumarate 50 mg PO HS 06/10/18 11/28/18 06/09/18 21:00 History Trazodone [Desyrel] 100 - 200 mg PO HS 06/10/18 11/28/18 06/09/18 21:00 History Pregabalin [Lyrica] 150 mg PO DAILY 08/29/18 11/28/18 Unknown History Albuterol Sulfate [Ventolin Hfa] 2 puff INH Q4-6H PRN PRN 11/28/18 11/28/18 Unknown History Escitalopram [Lexapro] 10 mg PO DAILY 11/28/18 11/28/18 Unknown History Lactulose 15 ml PO BID 11/28/18 11/28/18 Unknown History Lorazepam [Ativan] 1 tab PO QPM 11/28/18 11/28/18 Unknown History Lorazepam [Ativan] 2 tab PO QAM 11/28/18 11/28/18 Unknown History Meclizine [Antivert] 12.5 mg PO TID PRN PRN 11/28/18 11/28/18 Unknown History Sucralfate 1 tab PO BID 11/28/18 11/28/18 Unknown History - History of Present Illness-ABD Nature of Presenting Problems: pt is a 68 yr old male presenting with complaint of nausea, vomiting, abdominal pain and abdominal distention, pt reports hx of liver disease, alcoholism. pt reports last drink was approx 2hr RN LIAISON, reports he typically drinks 10-24 beers daily. pt is followed by gastro. Abdominal Pain Onset Location: reports: generalized abdomen Pain Radiation: reports: no radiation Quality of Pain: reports: fullness, indigestion, tightness Severity in ED: reports: moderate Onset/Duration: reports: this morning Timing: reports: still present Activities at Onset: reports: other (ETOH ingestion) Exposure to sick contacts?: No Modifying Factors: improves with: nothing Associated Symptoms: reports: nausea, vomiting. denies: diarrhea, fever/chills, genitourinary problems, shortness of breath Last BM: this morning Dark Stools Present?: reports: none noticed Rectal Bleeding: reports: none Rectal Pain: reports: none Emesis Description: reports: clear Bruising or Bleeding Gums?: No Similar Symptoms Previously?: Yes Recently seen or treated by another doctor?: Yes Review of Systems - Adult - REVIEW OF SYSTEMS - ADULT Constitutional: denies: chills, fever Eyes: reports: no symptoms reported Ears, Nose, Mouth & Throat: reports: no symptoms reported Cardiovascular: reports: no symptoms reported Respiratory: reports: no symptoms reported Gastrointestinal: reports: abdominal pain, nausea, poor appetite, vomiting Genitourinary: reports: no symptoms reported Musculoskeletal: reports: no symptoms reported Integumentary: reports: no symptoms reported Neurological: denies: dizziness/vertigo, headache/migraines Psychiatric: reports: alcohol/drug dependence Endocrine: reports: no symptoms reported Hematologic/Lymphatic: reports: no symptoms reported Allergic/Immunologic: reports: no symptoms reported All Other Systems: Reviewed and Negative Past History - Adult - PAST MEDICAL HISTORY-ADULT Review of Records: reports: Old Records Reviewed, Nursing Assessment Review, Medications Reviewed, Social history reviewed & non-contributory. Major Childhood Illnesses: reports: denies history Cardiovascular: reports: denies history Respiratory: reports: denies history Gastrointestinal: reports: denies history Obstetrical/Gynecological: reports: denies history Genitourinary: reports: denies history Musculoskeletal: reports: denies history Neurological: reports: denies history Endocrine/Immune: reports: denies history Other Conditions: reports: denies history - IMMUNIZATION STATUS Childhood Immunizations: See Nurse Assessment Flu Vaccine: See Nurse Assessment - FAMILY HISTORY Family History: reviewed, not pertinent - SOCIAL HISTORY Smoking: cigarettes Provider spent 3-5 mins advising pt. on dangers of tobacco.: Discussed manners to quit use, and f/u contacts for add'l counseling. Substance Use: alcohol Alcohol Use Frequency: every day Number of drinks per typical drinking period:: >20 drinks Living Situation: family Physical Exam-General - PHYSICAL EXAM-ADULT Initial Vital Signs Reviewed: Yes - CONSTITUTIONAL General Appearance: alert, no apparent distress - EYES Eyes: PERRL/EOMI - HEAD, EARS, NOSE, MOUTH & THROAT HENMT: normocephalic/atraumatic, moist mucous membranes - NECK Neck: non-tender, full range of motion, supple, normal inspection - RESPIRATORY Respiratory: chest non-tender, lungs clear, normal breath sounds - CARDIOVASCULAR Cardiovascular: normal peripheral pulses, regular rate, rhythm, no edema - GASTROINTESTINAL (ABDOMEN) Abdominal Exam: normal bowel sounds, distended, tenderness (diffuse) - LYMPHATIC Lymphatic: no adenopathy - MUSCULOSKELETAL Back Exam: normal inspection Extremity: normal range of motion, non-tender, normal gait, normal inspection - SKIN Integumentary: normal color, normal turgor, warm/dry - NEUROLOGIC Neurologic: grossly normal - PSYCHIATRIC Psych/Mental Status: normal mood/affect Progress - PLAN OF CARE/RESULTS Progress/Plan/Lab Results: Vital Signs - 8 hr 11/28/18 17:51 Temperature 97.3 F L Pulse Rate 88 Respiratory Rate 18 Blood Pressure 161/88 O2 Sat by Pulse Oximetry 97 Laboratory Results - last 24 hr 11/28/18 18:14 WBC 10.72 RBC 4.94 Hgb 14.7 Hct 41.4 L MCV 83.8 MCH 29.8 MCHC 35.5 RDW Std Deviation 13.8 Plt Count 239 MPV 9.8 Immature Gran % (Auto) 0.2 Neut % (Auto) 54.6 Lymph % (Auto) 26.3 [place] % (Auto) 11.4 H Eos % (Auto) 7.2 Baso % (Auto) 0.3 Immature Gran # (Auto) 0.02 Neut # (Auto) 5.86 Lymph # (Auto) 2.82 [place] # (Auto) 1.22 H Eos # (Auto) 0.77 H Baso # (Auto) 0.03 Orders Category Date Time Status Saline Loc DIRECTED Care 11/28/18 17:52 Active NPO Diet 11/28/18 17:52 Active ALCOHOL BLOOD Stat Lab 11/28/18 18:14 Received AMYLASE [CHEM] Stat Lab 11/28/18 18:14 Received CBC WITH ELECTRONIC DIFF [HEME] Stat Lab 11/28/18 18:14 Completed CK PROFILE [SP CHEM] Stat Lab 11/28/18 18:32 Ordered COMPREHENSIVE METABOLIC PANEL [CHEM] Stat Lab 11/28/18 18:14 Received LIPASE [CHEM] Stat Lab 11/28/18 18:14 Received PT [PROTIME WITH INR] [COAG] Stat Lab 11/28/18 18:14 Received TROPONIN T Stat Lab 11/28/18 18:[address] W/POSS RFLX CULT [URINALYSIS] Stat Lab 11/28/18 17:52 Uncollected Lido/Estrada Alk/Al&mg Hydrox [G.i. Cocktail] Med 11/28/18 18:32 Discontinued 30 ml PO NOW ONE Ondansetron [Zofran] Med 11/28/18 18:31 Discontinued 4 mg IM NOW ONE Result Diagrams: 11/28/18 18:14 11/28/18 22:55 - CT/MRI 1 CT Study: Abdomen, Pelvis CT Results: NAD - CONSULTS/PCP/HOSPITALIST Notification #1 *Consult/PCP/Hospitalist*: Dr. Samayoa Consult Disposition: Admit Departure - Departure Date of Disposition Decision: 11/19/18 Time of Disposition Decision: 23:53 DIAGNOSIS: Intractable nausea and vomiting, Hyponatremia, Alcohol abuse Abdominal pain Qualifiers: Abdominal location: unspecified location Qualified Code(s): R10.9 - Unspecified abdominal pain Disposition: ADMITTED INPATIENT 09 Certified Medical Emergency: Emergent Condition: Stable - Critical Care Note This patient required my direct & personal management of CC.: No Attestation - Physician/ TRAMAINE Attestation Patient care was provided by Advanced Practice Provider:: No The physician spent face to face time with patient:: Yes Advanced Practice Provider documentation review:: Supervising physician onsite and consulted in the evaluation and care of this patient. The physician did have a face to face encounter with the patient. This chart was documented by the indicated scribe, (Sherine Grossman, Lucius) and accurately reflects the services I performed and decisions made by me, Errol Bowser MD, as attested by the provider's signature.
[2018-11-28] MEDS ORDERED: ATIVAN IV PRN (22:12)
[2018-11-28] MEDS ORDERED: M.V.I.-12 10 ML, FOLIC ACID 1 MG, MAGNESIUM SULFATE 1 GM, THIAMINE 100 MG in NS 1,000 ML IV ONE (22:12)
[2018-11-28] MEDS ORDERED: PROTONIX 80 MG in NS 80 ML IV SCH (22:30)
[2018-11-28 23:17] LABS: BILIRUBIN URINE NEGATIVE (NEGATIVE); BLOOD URINE NEGATIVE (NEGATIVE); CLARITY CLEAR (CLEAR); COLOR YELLOW; GLUCOSE URINE NEGATIVE (NEGATIVE); KETONE URINE 1+(Small) mg/dL (NEGATIVE); LEUKOCYTES URINE NEGATIVE (NEGATIVE); NITRITE URINE NEGATIVE (NEGATIVE); PROTEIN URINE NEGATIVE (NEGATIVE); SP GRAVITY URINE 1.005; UROBILINOGEN URINE NORMAL
[2018-11-28 23:22] LABS: URINE BACTERIA 1+ /HFP; URINE CAST NONE SEEN /LPF; URINE CRYSTAL NONE SEEN /HPF; URINE EPITHELIAL CELLS <10 /HPF (<10); URINE SOURCE CATH; URINE WBC <10 /HPF (<10); URINE YEAST NONE SEEN /HPF
[2018-11-28 23:29] LABS: ESTIMATED GFR > 60
[2018-11-28 23:35] LABS: AGAP 23; ALBUMIN 4.7 g/dL (3.5-5.0); ALKALINE PHOSPHATASE 81 U/L (32-122); BUN 7 mg/dL (8-22); CALCIUM 8.9 mg/dL (8.8-10.2); CHLORIDE 88 mmol/L (98-107); COSMO 256; CREATININE 0.7 mg/dL (0.7-1.2); GLUCOSE 108 mg/dL (70-104); GOT 54 U/L (10-34); GPT 26 U/L (10-44); MAGNESIUM 1.5 mg/dL (1.5-2.7); POTASSIUM 3.7 mmol/L (3.5-5.1); SODIUM 128 mmol/L (136-145); TCO2 18 mmol/L (25-35); TOTAL PROTEIN 7.4 g/dL (6.3-8.3)
[2018-11-29] MEDS: MORPHINE IV PRN ×4 (00:14→19:18)
[2018-11-29] MEDS: ZOFRAN IV PRN ×2 (00:14→19:18)
[2018-11-29] MEDS ORDERED: M.V.I.-12 10 ML, FOLIC ACID 1 MG, MAGNESIUM SULFATE 1 GM, THIAMINE 100 MG in NS 1,000 ML IV ONE (09:00)
[2018-11-29] MEDS: LIBRIUM PO SCH ×3 (10:09→20:23)
[2018-11-29] MEDS: THERA M PLUS PO SCH (10:09)
[2018-11-29] MEDS ORDERED: G.I. COCKTAIL PO ONE (10:21)
[2018-11-29] MEDS: LYRICA PO SCH (12:54)
[2018-11-29] MEDS: NS 1,000 ML IV SCH ×2 (12:54→20:22)
[2018-11-29] MEDS: ATIVAN 20 MG in NS 190 ML IV SCH ×2 (12:54→20:30)
[2018-11-29] MEDS: LEXAPRO PO SCH (12:54)
[2018-11-29] MEDS: ATIVAN IV PRN ×2 (14:04→20:21)
--- NOTE | 2018-11-29 14:15 | HISTORY AND PHYSICAL ---
CHIEF COMPLAINT: Abdominal pain. HISTORY OF PRESENT ILLNESS: This is a 68-year-old gentleman who presented to the emergency department with complaint of having abdominal pain associated with nausea, vomiting and diarrhea of several hours' duration. He was drinking beer 2 hours prior to arrival after which he was having the symptoms, and therefore he had to come into the hospital for further care. The patient was admitted last night to the hospital and since then, he reports some improvement of his nausea, vomiting, diarrhea, and abdominal pain. He has been reportedly having alcohol withdrawals by the nurse, however. He has also been very agitated. PAST MEDICAL HISTORY: 1. Hypertension. 2. Anxiety disorder. 3. Allergic rhinitis. 4. Insomnia. 5. Depression. 6. Gastroesophageal reflux disease. 7. COPD. FAMILY HISTORY: Noncontributory. SOCIAL HISTORY: The patient drinks up to 1 case of beer once daily every day. He also smokes 1 pack of cigarettes per day and lives with his . ALLERGIES: No known drug allergies reported. MEDICATIONS: 1. Lexapro 10 mg orally once daily. 2. Amlodipine 10 mg orally once daily. 3. Albuterol inhaler 2 puffs every 4 to 6 hours as an needed. 4. Fluticasone nasal spray 2 sprays per nostril once daily. 5. Hydroxyzine 50 mg every 6 hours as needed. 6. Lactulose 15 mL orally twice daily for constipation. 7. Lorazepam 1 mg orally once daily at bedtime and 2 mg orally once daily in the morning. 8. Meclizine 12.5 mg orally 3 times a day as needed for dizziness. 9. Trazodone 100 to 200 mg orally once daily at bedtime for insomnia. 10. Protonix 40 mg orally once daily. 11. Lyrica 150 mg orally once daily. 12. Seroquel 50 mg orally once daily at bedtime. 13. Sucralfate 1 g orally twice daily. REVIEW OF SYSTEMS: A full 14-point review of systems was obtained that was pretty much the same as already has been explained in the HPI. PHYSICAL EXAMINATION: VITAL SIGNS: Temperature 98.4 degrees, pulse 60 per minute, respiratory rate 25 per minute, blood pressure 157/82, pulse oximetry 98% on room air. GENERAL: Patient is awake and alert. He is in a kind of elated mood and very hyperactive. He does not appear to be in any acute distress at this time. HEENT: Within normal limits. NECK: Supple without any thyromegaly. LYMPHATICS: No lymphadenopathy noted in the neck region. CHEST: Chest wall is nontender. CARDIOVASCULAR SYSTEM: First and second heart sounds are audible without any murmurs or gallops. RESPIRATORY SYSTEM: No respiratory distress noted. Bilateral lung air entry is good without any rales or rhonchi. GASTROINTESTINAL SYSTEM: Abdomen is soft and nondistended. It is nontender on palpation, and bowel sounds are slightly hyperactive. NEUROLOGIC: No focal deficits are present. PSYCHIATRIC: Patient is kind of agitated and very elated. GENITOURINARY: Deferred. INTEGUMENTARY: Skin is warm, dry, and without any rash. DIAGNOSTIC DATA: CBC is within normal limits, and comprehensive metabolic panel done this morning shows sodium level of 128, chloride 88, CO2 18 and glucose levels of 108. AST was slightly elevated at 54. The rest of the comprehensive metabolic panel is nondiagnostic. CPK was elevated at 1522 yesterday. Troponin levels were negative. Urine was negative and serum ethyl alcohol levels were 133. Abdomen and pelvic CT scan did not show any definite acute pathology. IMPRESSION: 1. Alcohol abuse with withdrawal. 2. Hyponatremia. 3. Hypertension. 4. Anxiety disorder. 5. History of depression and insomnia. PLAN: The patient was initially admitted to the med-surg floor, and we have transferred him to the intensive care unit since he was agitated. He has been initiated on Ativan IV drip, and wrist restraints were applied for protection. We are going to continue with IV multivitamins and give him Librium 50 mg 2 times a day for prevention of alcohol withdrawal as well. We will give him IV fluids normal saline at 125 mL/h and continue with the Protonix 40 mg orally once daily. We will continue with his routine home medications including Lyrica, Seroquel, and sucralfate as well. We are going to have repeat labs including CBC, BMP, magnesium, and CPK in the morning tomorrow. I believe these measures should make him feel better soon. cc: Estefani Samayoa MD
[2018-11-29] MEDS ORDERED: HALDOL IV ONE (14:33)
[2018-11-29 18:29] LABS: BILIRUBIN URINE NEGATIVE (NEGATIVE); BLOOD URINE NEGATIVE (NEGATIVE); CLARITY CLEAR (CLEAR); COLOR YELLOW; GLUCOSE URINE NEGATIVE (NEGATIVE); KETONE URINE TRACE mg/dL (NEGATIVE); LEUKOCYTES URINE NEGATIVE (NEGATIVE); NITRITE URINE NEGATIVE (NEGATIVE); PROTEIN URINE NEGATIVE (NEGATIVE); UROBILINOGEN URINE NORMAL
[2018-11-29 18:51] LABS: URINE BACTERIA 1+ /HFP; URINE EPITHELIAL CELLS <10 /HPF (<10); URINE WBC <10 /HPF (<10); URINE YEAST NONE SEEN /HPF
[2018-11-29 18:52] LABS: URINE CAST NONE SEEN /LPF; URINE CRYSTAL NONE SEEN /HPF; URINE SOURCE CATH
[2018-11-29] MEDS: GEODON IM PRN (19:19)
[2018-11-29] MEDS: STERILE WATER INJ. INJ PRN (19:24)
[2018-11-29] MEDS: SEROQUEL PO SCH (20:22)
[2018-11-29] MEDS: CARAFATE LIQUID PO SCH (20:58)
[2018-11-29] MEDS ORDERED: CARAFATE PO SCH (21:00)
[2018-11-30 06:37] LABS: BASO# 0.06 X1000 (0.0-0.2); BASO% 0.8 % (0.0-0.8); EOS# 1.39 X1000 (0.0-0.7); EOS% 18.4 % (0.0-10.0); HEMATOCRIT 46.1 % (42.0-52.0); HEMOGLOBIN 15.4 g/dL (14.0-18.0); IMM GRAN# 0.01 X1000 (0.0-0.04); IMM GRAN% 0.1 % (0.0-0.5); LYMPH# 1.53 X1000 (1.2-3.4); LYMPH% 20.2 % (20.5-51.1); MCHC 33.4 g/dL (33-37); MCV 89.7 FL (81-99); MONO# 1.24 X1000 (0.11-0.59); MONO% 16.4 % (1.7-9.3); MPV 10.5 FL (7.4-10.4); NEUT# 3.34 X1000 (1.4-6.5); NEUT% 44.1 % (42.2-75.2); PLT 137 X1000 (130-400); RBC 5.14 XMIL (4.7-6.1); RDW 15.1 % (11.5-14.5); WBC 7.57 X1000 (4.8-10.8)
[2018-11-30 06:51] LABS: AGAP 14; BUN 4 mg/dL (8-22); CALCIUM 8.5 mg/dL (8.8-10.2); CHLORIDE 108 mmol/L (98-107); CK TOTAL 406 U/L (24-204); COSMO 279; CREATININE 0.5 mg/dL (0.7-1.2); ESTIMATED GFR > 60; GLUCOSE 89 mg/dL (70-104); MAGNESIUM 2.1 mg/dL (1.5-2.7); SODIUM 142 mmol/L (136-145); TCO2 21 mmol/L (25-35)
[2018-11-30] MEDS ORDERED: PROTONIX PO SCH (07:30)
[2018-11-30] MEDS: NS 1,000 ML IV SCH ×2 (07:41→17:00)
[2018-11-30] MEDS: CARAFATE LIQUID PO SCH ×2 (09:50→20:04)
[2018-11-30] MEDS: THERA M PLUS PO SCH (10:01)
[2018-11-30] MEDS: LIBRIUM PO SCH (10:01)
[2018-11-30] MEDS: LEXAPRO PO SCH (10:02)
[2018-11-30] MEDS: LYRICA PO SCH (10:02)
[2018-11-30] MEDS: M.V.I.-12 10 ML, FOLIC ACID 1 MG, MAGNESIUM SULFATE 1 GM, THIAMINE 100 MG in NS 1,000 ML IV SCH (10:12)
[2018-11-30] MEDS ORDERED: VENTOLIN HFA INH PRN (11:46)
--- NOTE | 2018-11-30 14:47 | PROGRESS NOTE ---
DATE: 11/30/2018 SUBJECTIVE: The patient has no major complaints. He is still very out of it though. OBJECTIVE: Vital Signs: Blood pressure 97/68, heart rate of 78, respiratory rate 15. Cardiovascular: Regular rate and rhythm. Pulmonary: Bilateral breath sounds. Clear to auscultation. Gastrointestinal: Abdomen was soft, nontender, nondistended. Bowel sounds are positive. Extremity: Exam no clubbing or cyanosis. Lymphatic exam no peripheral edema. Neurological: Nonfocal, although he is pretty lethargic. LABORATORY DATA: White count is 7.5, hemoglobin and hematocrit 15 abduction 46, platelets 137,000. Basic was normal. CPK down to 406. Alcohol level is 133. PROBLEM LIST: 1. Alcohol withdrawal syndrome. He seems to be doing okay. He is on an Ativan drip. I am going to hold the Librium. We do need to start Librium once he is off the Ativan drip. 2. Hyponatremia. That has since been corrected, probably over corrected unfortunately, but we will continue to monitor. 3. Questionable cirrhosis. He states he has been placed on lactulose. It is not clear if it is for constipation or cirrhosis. I do not know if he clearly has a diagnosis of alcoholic cirrhosis, based on any of his current data, so that may not be an issue right now, but we are going to get an ultrasound. I also recommend that he stay on his medications and follow closely. 4. Disposition, pending his clinical status, he has to get through withdrawal. He may require GI consultation if his nausea and vomiting is not improved, although right now I think it seems to be okay, but he is only on a clear liquid diet. We will continue Protonix until he stabilizes a bit further. cc: Bj Rose MD
--- NOTE | 2018-11-30 16:08 | Diag Imaging Result Doc PS360 ---
US GB < RUQ (LIMITED) - 11/30/2018 INDICATION: elevated liver enzymes TECHNIQUE: Bello scale, color Doppler, and duplex evaluation of the abdomen was performed. Standard protocol. COMPARISON: None FINDINGS: Limited portable exam. The liver as seen appears unremarkable. No focal masses are appreciated. The IVC and aorta are obscured. The pancreas is obscured by bowel gas artifact. The gallbladder is free of stones and sludge has a normal caliber wall. The common bile duct measures 5 mm. The portal vein is patent with hepatopetal flow. The right kidney appears normal. There is no hydronephrosis. IMPRESSION: No cholelithiasis. Electronically signed by Allyson Marquis 11/30/2018 4:06 PM
[2018-11-30] MEDS: ATIVAN 20 MG in NS 190 ML IV SCH (18:00)
[2018-11-30] MEDS: MORPHINE IV PRN (19:25)
[2018-11-30] MEDS: ATIVAN IV PRN (19:25)
[2018-11-30] MEDS: GEODON IM PRN (19:41)
[2018-11-30] MEDS: STERILE WATER INJ. INJ PRN (19:41)
[2018-11-30] MEDS: SEROQUEL PO SCH (20:04)
[2018-11-30] MEDS: PROTONIX PO SCH (21:44)
[2018-12-01] MEDS: NS 1,000 ML IV SCH ×4 (00:27→22:25)
[2018-12-01] MEDS: ATIVAN IV PRN ×6 (00:27→20:32)
[2018-12-01] MEDS: MORPHINE IV PRN ×3 (05:41→22:23)
[2018-12-01 06:57] LABS: AGAP 11; ALBUMIN 3.6 g/dL (3.5-5.0); ALKALINE PHOSPHATASE 77 U/L (32-122); BUN 3 mg/dL (8-22); CALCIUM 8.3 mg/dL (8.8-10.2); CHLORIDE 107 mmol/L (98-107); COSMO 275; CREATININE 0.7 mg/dL (0.7-1.2); DIRECT BILIRUBIN < 0.20 mg/dL (0.00-0.20); ESTIMATED GFR > 60; GLUCOSE 87 mg/dL (70-104); GOT 34 U/L (10-34); GPT 27 U/L (10-44); PHOSPHORUS 2.3 mg/dL (2.7-4.5); POTASSIUM 3.4 mmol/L (3.5-5.1); SODIUM 140 mmol/L (136-145); TCO2 22 mmol/L (25-35); TOTAL PROTEIN 6.6 g/dL (6.3-8.3)
[2018-12-01 07:03] LABS: HEMATOCRIT 45.9 % (42.0-52.0); HEMOGLOBIN 15.1 g/dL (14.0-18.0); MCH 29.8 PG (27-31); MCHC 32.9 g/dL (33-37); MCV 90.5 FL (81-99); RBC 5.07 XMIL (4.7-6.1); RDW 15.2 % (11.5-14.5); WBC 10.46 X1000 (4.8-10.8)
[2018-12-01] MEDS ORDERED: SALINE LOCK IV FLUID XX ONE (08:32)
[2018-12-01] MEDS: LEXAPRO PO SCH (08:44)
[2018-12-01] MEDS: M.V.I.-12 10 ML, FOLIC ACID 1 MG, MAGNESIUM SULFATE 1 GM, THIAMINE 100 MG in NS 1,000 ML IV SCH (08:44)
[2018-12-01] MEDS: THERA M PLUS PO SCH (08:44)
[2018-12-01] MEDS: PROTONIX PO SCH ×2 (08:44→20:33)
[2018-12-01] MEDS: CARAFATE LIQUID PO SCH ×2 (08:45→20:33)
[2018-12-01] MEDS: LYRICA PO SCH (08:45)
[2018-12-01] MEDS: LIBRIUM PO SCH ×3 (08:47→20:32)
[2018-12-01] MEDS: GEODON IM PRN (15:12)
[2018-12-01] MEDS: STERILE WATER INJ. INJ PRN (15:13)
--- NOTE | 2018-12-01 19:38 | PROGRESS NOTE ---
DATE: 12/01/2018 SUBJECTIVE: Patient is somnolent. Does not answer questions. Staff notes that he had episode of acute agitation last night. PHYSICAL: Temperature 98 degrees, pulse 76, BP 159/74.General: Patient will awaken but he does not answer questions nor follow commands currently. He is in no respiratory distress. He is calm. Nonlabored breathing. HEENT: Normocephalic. Neck: Supple. CV: Regular rate. Chest: Clear. Abdomen: Soft. Extremities: Moves all extremities. Neurologic: Unable to assess. ASSESSMENT: 1. Alcohol withdrawal syndrome. 2. Hyponatremia improved currently at 140. 3. Hypokalemia. 4. Rhabdomyolysis resolved. PLAN: We are going to try to get him off Ativan drip and transition him over to oral Librium and will follow. cc: Bill Mendoza MD
[2018-12-01] MEDS: SEROQUEL PO SCH (20:33)
[2018-12-02] MEDS: LIBRIUM PO SCH ×3 (03:02→16:48)
[2018-12-02] MEDS: ATIVAN IV PRN ×5 (03:43→20:43)
[2018-12-02] MEDS: MORPHINE IV PRN ×4 (03:43→20:43)
[2018-12-02] MEDS: NS 1,000 ML IV SCH ×2 (05:51→20:45)
[2018-12-02 06:47] LABS: AGAP 15; ALBUMIN 3.1 g/dL (3.5-5.0); BUN 3 mg/dL (8-22); CALCIUM 8.5 mg/dL (8.8-10.2); CHLORIDE 108 mmol/L (98-107); COSMO 274; CREATININE 0.7 mg/dL (0.7-1.2); ESTIMATED GFR > 60; GLUCOSE 95 mg/dL (70-104); POTASSIUM 4.1 mmol/L (3.5-5.1); SODIUM 139 mmol/L (136-145); TCO2 16 mmol/L (25-35)
[2018-12-02] MEDS: PROTONIX PO SCH ×2 (08:36→20:45)
[2018-12-02] MEDS: CARAFATE LIQUID PO SCH ×2 (08:36→20:45)
[2018-12-02] MEDS: THERA M PLUS PO SCH (08:36)
[2018-12-02] MEDS: LEXAPRO PO SCH (08:36)
[2018-12-02] MEDS: LYRICA PO SCH (08:36)
[2018-12-02] MEDS: M.V.I.-12 10 ML, FOLIC ACID 1 MG, MAGNESIUM SULFATE 1 GM, THIAMINE 100 MG in NS 1,000 ML IV SCH (08:37)
[2018-12-02] MEDS: STERILE WATER INJ. INJ PRN (15:36)
[2018-12-02] MEDS: GEODON IM PRN (15:36)
[2018-12-02] MEDS: SEROQUEL PO SCH (20:45)
--- NOTE | 2018-12-02 23:39 | PROGRESS NOTE ---
DATE: 12/02/2018 SUBJECTIVE: The patient is still confused. He does awaken at times, but is pretty much disoriented and does not follow any commands currently. OBJECTIVE: Temperature 98, pulse 75, respiratory rate 18, BP 160/83.General: The patient is awake, currently in no respiratory distress. HEENT: Normocephalic. Neck supple. Cardiovascular: Regular rate. Chest clear, nonlabored. Abdomen soft, nondistended. Extremities: The patient is noted to move all extremities. Neurologic: Unable to assess due to his confusion. He is still in restraints secondary to his confusion and his propensity to hurt himself as well as the staff. ASSESSMENT: 1. Alcohol abuse and withdrawal. 2. Hyponatremia, improved. 3. Hypokalemia, improved. 4. Metabolic acidosis, improved. PLAN: We will continue the patient in the hospital. His rhabdomyolysis has resolved. We will continue to follow. He is currently off an Ativan drip. We are using Librium. Further orders as needed. cc: Bill Mendoza MD
[2018-12-03] MEDS: LIBRIUM PO SCH ×3 (00:05→18:21)
[2018-12-03] MEDS: ATIVAN IV PRN ×5 (00:05→19:54)
[2018-12-03] MEDS: MORPHINE IV PRN ×5 (00:05→19:54)
[2018-12-03] MEDS: NS 1,000 ML IV SCH ×2 (04:42→19:54)
[2018-12-03] MEDS: M.V.I.-12 10 ML, FOLIC ACID 1 MG, MAGNESIUM SULFATE 1 GM, THIAMINE 100 MG in NS 1,000 ML IV SCH (09:56)
[2018-12-03] MEDS ORDERED: APRESOLINE IV PRN (10:25)
[2018-12-03] MEDS: LACTULOSE PO SCH ×2 (10:26→21:00)
[2018-12-03] MEDS: LEXAPRO PO SCH (10:26)
[2018-12-03] MEDS: CARAFATE LIQUID PO SCH ×2 (10:26→21:00)
[2018-12-03] MEDS: NORVASC PO SCH (10:27)
[2018-12-03] MEDS: LYRICA PO SCH (10:27)
[2018-12-03] MEDS: PROTONIX PO SCH ×2 (10:28→21:00)
[2018-12-03] MEDS: THERA M PLUS PO SCH (10:28)
[2018-12-03] MEDS: STERILE WATER INJ. INJ PRN (19:55)
[2018-12-03] MEDS: GEODON IM PRN (19:55)
[2018-12-03] MEDS: SEROQUEL PO SCH (21:00)
--- NOTE | 2018-12-04 00:21 | PROGRESS NOTE ---
DATE: 12/03/2018 SUBJECTIVE: Patient does awaken although he does not follow commands. He is still confused, easily agitated. PHYSICAL EXAMINATION: Vital Signs: Temperature 98 degrees, pulse 81, respiratory rate 18, BP 172/97. General: Patient is pleasant. He is in no distress although he is easily confused. HEENT: Normocephalic. Neck: Supple. Cardiovascular: Regular rate. Chest: Clear. Abdomen: Soft. Extremities: Moves all extremities. ASSESSMENT: 1. Alcohol abuse and withdrawal. Currently, he is much more stable from an alcohol standpoint. 2. Acute agitation. Feels as though this is more related to chronic alcoholism than to an acute withdrawal. 3. Hyponatremia. 4. Hypokalemia. 5. Metabolic acidosis. 6. Hypertension. 7. Rhabdomyolysis. PLAN: We will continue patient in the hospital. Continue to wean Librium as tolerated and we will follow. Continue to treat symptomatically. cc: Bill Mendoza MD
[2018-12-04] MEDS: LIBRIUM PO SCH (02:13)
[2018-12-04] MEDS: MORPHINE IV PRN ×3 (02:57→16:33)
[2018-12-04] MEDS: ATIVAN IV PRN ×3 (02:57→19:22)
[2018-12-04] MEDS: NS 1,000 ML IV SCH ×2 (02:59→17:00)
[2018-12-04] MEDS: PROTONIX PO SCH ×2 (09:31→20:12)
[2018-12-04] MEDS: NORVASC PO SCH (09:32)
[2018-12-04] MEDS: THERA M PLUS PO SCH (09:32)
[2018-12-04] MEDS: CARAFATE LIQUID PO SCH ×2 (09:32→20:11)
[2018-12-04] MEDS: LEXAPRO PO SCH (09:33)
[2018-12-04] MEDS: LACTULOSE PO SCH ×2 (09:33→20:11)
[2018-12-04] MEDS: LYRICA PO SCH (09:33)
[2018-12-04] MEDS: M.V.I.-12 10 ML, FOLIC ACID 1 MG, MAGNESIUM SULFATE 1 GM, THIAMINE 100 MG in NS 1,000 ML IV SCH (09:34)
--- NOTE | 2018-12-04 17:10 | PROGRESS NOTE ---
DATE: 12/04/2018 SUBJECTIVE: Patient is still confused, disoriented. Does not answer questions nor follow commands. OBJECTIVE: Temperature 98 degrees, pulse 86, respiratory rate 18, BP 158/97.General: Patient is in no respiratory distress. He is easily awakened, but he is still confused, disoriented. Does not answer questions nor follow commands. HEENT: Normocephalic. Neck: Supple. Cardiovascular: Regular rate. Chest: Clear. Abdomen: Soft, nondistended. Extremities: He is noted to move all extremities. Neurologic: Unable to assess. He is easily agitated, confused. He currently is in soft restraints for his safety. ASSESSMENT: 1. Alcohol withdrawal syndrome. He currently is in no acute alcohol withdrawal, but he is still confused and has metabolic encephalopathy secondary to withdrawal from alcohol. 2. Alcoholic hallucinosis. 3. Hyponatremia. Resolved. 4. Metabolic acidosis. 5. Rhabdomyolysis. Resolved. 6. Hypertension. Stable. PLAN: We will continue patient in the hospital. Continue Ativan drip as needed. We will continue to attempt to encourage him to stay calm. We will follow his blood pressures. Further orders as needed. cc: Bill Mendoza MD
[2018-12-04 17:46] LABS: BILIRUBIN URINE NEGATIVE (NEGATIVE); BLOOD URINE 3+ (NEGATIVE); CLARITY SL. CLOUDY (CLEAR); COLOR YELLOW; GLUCOSE URINE NEGATIVE (NEGATIVE); KETONE URINE 3+(Large) mg/dL (NEGATIVE); LEUKOCYTES URINE 1+ (NEGATIVE); NITRITE URINE NEGATIVE (NEGATIVE); PROTEIN URINE TRACE mg/dL (NEGATIVE); SP GRAVITY URINE 1.005; UROBILINOGEN URINE 4 mg/dL
[2018-12-04 17:49] LABS: URINE BACTERIA 1+ /HFP
[2018-12-04 17:50] LABS: URINE CAST NONE SEEN /LPF; URINE CRYSTAL NONE SEEN /HPF; URINE EPITHELIAL CELLS <10 /HPF (<10); URINE SOURCE CATH; URINE YEAST NONE SEEN /HPF
[2018-12-04] MEDS: ZOSYN 3.375 GM in NS 50 ML IV SCH ×2 (18:46→22:14)
[2018-12-04] MEDS ORDERED: OFIRMEV 1000 MG/ISOTONIC SOLN 1,000 MG/100 ML BOTTLE IV PRN (18:57)
[2018-12-04] MEDS: CLINDAMYCIN 900 MG/D5W 900 MG/50 ML IVPB IV SCH (19:15)
--- NOTE | 2018-12-04 19:18 | Diag Imaging Result Doc PS360 ---
EXAM: CHEST-PORTABLE HISTORY: fever spike TECHNIQUE: Chest COMPARISON: 09/05/2018 FINDINGS: Poor inspiratory effort. No infiltrates. No pleural effusions identified. Prominent heart. IMPRESSION: No pneumonia. Electronically signed by Massimo aMck 12/04/2018 7:16 PM
[2018-12-04] MEDS: GEODON IM PRN (19:21)
[2018-12-04] MEDS: STERILE WATER INJ. INJ PRN (19:21)
[2018-12-04] MEDS: ZOFRAN IV PRN (19:21)
[2018-12-04] MEDS: SEROQUEL PO SCH (20:11)
[2018-12-05] MEDS: CLINDAMYCIN 900 MG/D5W 900 MG/50 ML IVPB IV SCH ×3 (05:32→20:02)
[2018-12-05] MEDS: NS 1,000 ML IV SCH ×2 (05:32→17:49)
[2018-12-05] MEDS: ZOSYN 3.375 GM in NS 50 ML IV SCH ×4 (05:32→21:37)
[2018-12-05 05:44] LABS: BASO# 0.02 X1000 (0.0-0.2); BASO% 0.1 % (0.0-0.8); EOS# 0.01 X1000 (0.0-0.7); EOS% 0.1 % (0.0-10.0); HEMOGLOBIN 13.2 g/dL (14.0-18.0); IMM GRAN# 0.04 X1000 (0.0-0.04); IMM GRAN% 0.3 % (0.0-0.5); LYMPH# 1.03 X1000 (1.2-3.4); MCH 29.5 PG (27-31); MCV 89.5 FL (81-99); MONO# 1.57 X1000 (0.11-0.59); MONO% 10.6 % (1.7-9.3); NEUT# 12.09 X1000 (1.4-6.5); NEUT% 81.9 % (42.2-75.2); PLT 216 X1000 (130-400); RBC 4.47 XMIL (4.7-6.1); RDW 14.4 % (11.5-14.5); WBC 14.76 X1000 (4.8-10.8)
[2018-12-05 06:37] LABS: AGAP 12; ALBUMIN 2.9 g/dL (3.5-5.0); ALKALINE PHOSPHATASE 71 U/L (32-122); BUN 9 mg/dL (8-22); CALCIUM 8.9 mg/dL (8.8-10.2); CHLORIDE 108 mmol/L (98-107); COSMO 281; CREATININE 0.7 mg/dL (0.7-1.2); ESTIMATED GFR > 60; GLUCOSE 154 mg/dL (70-104); GOT 11 U/L (10-34); GPT 10 U/L (10-44); POTASSIUM 2.7 mmol/L (3.5-5.1); SODIUM 140 mmol/L (136-145); TCO2 20 mmol/L (25-35); TOTAL PROTEIN 6.3 g/dL (6.3-8.3)
[2018-12-05] MEDS: PROTONIX PO SCH ×2 (10:13→20:02)
[2018-12-05] MEDS: LACTULOSE PO SCH ×2 (10:14→20:02)
[2018-12-05] MEDS: NORVASC PO SCH (10:14)
[2018-12-05] MEDS: LYRICA PO SCH (10:14)
[2018-12-05] MEDS: THERA M PLUS PO SCH (10:14)
[2018-12-05] MEDS: LEXAPRO PO SCH (10:15)
[2018-12-05] MEDS: POTASSIUM CHLORIDE 20 MEQ/SWI 20 MEQ/100 ML IVPB IV SCH ×3 (10:47→12:33)
[2018-12-05] MEDS: CARAFATE LIQUID PO SCH ×2 (10:49→20:02)
[2018-12-05] MEDS: M.V.I.-12 10 ML, FOLIC ACID 1 MG, MAGNESIUM SULFATE 1 GM, THIAMINE 100 MG in NS 1,000 ML IV SCH (10:49)
--- NOTE | 2018-12-05 12:10 | PROGRESS NOTE ---
DATE: 12/05/2018 SUBJECTIVE: The patient is somewhat disoriented. No acute complaints are reported. OBJECTIVE: Vital Signs: Temperature 97.6 degrees, pulse 58 per minute, respiratory rate 20 per minute, blood pressure 105/67, pulse oximetry 100% on room air. General: Patient is awake but somewhat disoriented. Cardiovascular System: First and second heart sounds are audible without any murmurs or gallops. Respiratory System: No respiratory distress noted. Bilateral lung air entry is moderately decreased with no rales or rhonchi present on auscultation. Gastrointestinal system: Abdomen is soft and nondistended. Normal bowel sounds are present. Musculoskeletal System: No deformities are present. DIAGNOSTIC DATA: CBC shows WBC count of 14.76 with 81.9% neutrophils. Rest of the CBC is nondiagnostic. In comparison, his WBC count was 10.46 on 12/01/2018. Comprehensive metabolic panel done this morning showed potassium level of 2.7, chloride 108, CO2 20, and glucose level of 154. Albumin level was found to be 2.9. Rest of the comprehensive metabolic panel was nondiagnostic. IMPRESSION: 1. Alcohol withdrawal syndrome. That has now improved. 2. Hypokalemia. 3. Urinary tract infection. PLAN: The patient will continue to receive Ativan as needed and he will also continue to get Zosyn along with clindamycin for urinary tract infection and also possible aspiration. We will continue with IV fluid and give him potassium supplements intravenously for hypokalemia. Further recommendations will be given as per the hospital course. cc: Estefani Samayoa MD
[2018-12-05] MEDS: OFIRMEV 1000 MG/ISOTONIC SOLN 1,000 MG/100 ML BOTTLE IV PRN (13:29)
[2018-12-05 15:54] LABS: AGAP 8; BUN 10 mg/dL (8-22); CALCIUM 8.6 mg/dL (8.8-10.2); CHLORIDE 109 mmol/L (98-107); COSMO 278; CREATININE 0.6 mg/dL (0.7-1.2); ESTIMATED GFR > 60; GLUCOSE 166 mg/dL (70-104); POTASSIUM 3.2 mmol/L (3.5-5.1); SODIUM 138 mmol/L (136-145); TCO2 21 mmol/L (25-35)
[2018-12-05] MEDS: ATIVAN IV PRN (18:32)
[2018-12-05] MEDS: MORPHINE IV PRN (18:32)
[2018-12-05] MEDS: SEROQUEL PO SCH (20:02)
[2018-12-06] MEDS: CLINDAMYCIN 900 MG/D5W 900 MG/50 ML IVPB IV SCH ×3 (03:57→20:56)
[2018-12-06] MEDS: ZOSYN 3.375 GM in NS 50 ML IV SCH ×4 (03:58→21:32)
[2018-12-06] MEDS: NS 1,000 ML IV SCH ×2 (03:59→20:56)
[2018-12-06] MEDS: MORPHINE IV PRN ×4 (05:16→20:35)
[2018-12-06 07:21] LABS: AGAP 10; ALBUMIN 2.8 g/dL (3.5-5.0); ALKALINE PHOSPHATASE 85 U/L (32-122); BUN 8 mg/dL (8-22); CALCIUM 8.8 mg/dL (8.8-10.2); CHLORIDE 110 mmol/L (98-107); COSMO 284; CREATININE 0.7 mg/dL (0.7-1.2); ESTIMATED GFR > 60; GLUCOSE 112 mg/dL (70-104); GOT 24 U/L (10-34); GPT 15 U/L (10-44); POTASSIUM 2.8 mmol/L (3.5-5.1); SODIUM 143 mmol/L (136-145); TCO2 23 mmol/L (25-35); TOTAL PROTEIN 6.3 g/dL (6.3-8.3)
[2018-12-06 07:50] LABS: BASO# 0.03 X1000 (0.0-0.2); BASO% 0.3 % (0.0-0.8); EOS# 0.29 X1000 (0.0-0.7); EOS% 2.6 % (0.0-10.0); HEMATOCRIT 40.1 % (42.0-52.0); HEMOGLOBIN 13.8 g/dL (14.0-18.0); IMM GRAN# 0.03 X1000 (0.0-0.04); IMM GRAN% 0.3 % (0.0-0.5); LYMPH# 1.64 X1000 (1.2-3.4); LYMPH% 14.9 % (20.5-51.1); MCH 30.3 PG (27-31); MCHC 34.4 g/dL (33-37); MCV 87.9 FL (81-99); MONO# 1.16 X1000 (0.11-0.59); MONO% 10.5 % (1.7-9.3); MPV 9.8 FL (7.4-10.4); NEUT# 7.85 X1000 (1.4-6.5); NEUT% 71.4 % (42.2-75.2); PLT 298 X1000 (130-400); RBC 4.56 XMIL (4.7-6.1); RDW 14.3 % (11.5-14.5)
[2018-12-06] MEDS ORDERED: KLOR-CON PO ONE ×2 (08:33→13:00)
[2018-12-06] MEDS: NORVASC PO SCH (08:50)
[2018-12-06] MEDS: PROTONIX PO SCH ×2 (08:50→20:57)
[2018-12-06] MEDS: LYRICA PO SCH (08:50)
[2018-12-06] MEDS: M.V.I.-12 10 ML, FOLIC ACID 1 MG, MAGNESIUM SULFATE 1 GM, THIAMINE 100 MG in NS 1,000 ML IV SCH (08:51)
[2018-12-06] MEDS: THERA M PLUS PO SCH (08:51)
[2018-12-06] MEDS: LEXAPRO PO SCH (08:51)
[2018-12-06] MEDS: LACTULOSE PO SCH ×2 (08:51→20:58)
[2018-12-06] MEDS: CARAFATE LIQUID PO SCH ×2 (08:51→20:57)
[2018-12-06] MEDS: ATIVAN IV PRN ×3 (09:14→20:25)
--- NOTE | 2018-12-06 10:18 | PROGRESS NOTE ---
DATE: 12/06/2018 SUBJECTIVE: Patient continues to have altered mental status and is not able to communicate. Nursing does not report any significant issues otherwise. OBJECTIVE: Vital Signs: Temperature 98.1 degrees, pulse 83 per minute, respiratory rate 24 per minute, blood pressure 164/94, pulse oximetry 99% on room air. General: Patient is lethargic and responds but is not coherent and not oriented. Cardiovascular System: First and second heart sounds are audible without any murmurs or gallops. Respiratory System: Bilateral lung air entry is good without any rales or rhonchi. Gastrointestinal System: Abdomen is soft and nondistended. Normal bowel sounds are present. Diagnostic Data: CBC shows WBC count of 11.0 with 71.4% neutrophils. In comparison, his WBC count was 14.76 yesterday. Comprehensive metabolic panel showed potassium level of 2.8. Rest of the CMP was nondiagnostic. IMPRESSION: 1. Alcohol withdrawal syndrome. 2. Hypokalemia. 3. Urinary tract infection. PLAN: We will continue with current medications including lorazepam IV. We are going to continue giving him Zosyn and clindamycin for urinary tract infection along with possible aspiration. We are also going to replenish his potassium and provide him overall supportive care. We will follow hospital course. cc: Estefani Samayoa MD
[2018-12-06] MEDS: GEODON IM PRN (20:35)
[2018-12-06] MEDS: SEROQUEL PO SCH (20:58)
[2018-12-07] MEDS: MORPHINE IV PRN (02:04)
[2018-12-07] MEDS: ATIVAN IV PRN ×4 (02:34→20:30)
[2018-12-07] MEDS: ZOSYN 3.375 GM in NS 50 ML IV SCH ×4 (04:19→22:43)
[2018-12-07] MEDS: CLINDAMYCIN 900 MG/D5W 900 MG/50 ML IVPB IV SCH ×3 (04:19→20:29)
[2018-12-07 06:29] LABS: BASO# 0.04 X1000 (0.0-0.2); BASO% 0.4 % (0.0-0.8); EOS# 1.03 X1000 (0.0-0.7); EOS% 9.8 % (0.0-10.0); HEMATOCRIT 39.8 % (42.0-52.0); HEMOGLOBIN 13.4 g/dL (14.0-18.0); IMM GRAN# 0.02 X1000 (0.0-0.04); IMM GRAN% 0.2 % (0.0-0.5); LYMPH# 1.77 X1000 (1.2-3.4); LYMPH% 16.8 % (20.5-51.1); MCH 29.5 PG (27-31); MCHC 33.7 g/dL (33-37); MCV 87.7 FL (81-99); MONO# 0.96 X1000 (0.11-0.59); MONO% 9.1 % (1.7-9.3); MPV 9.8 FL (7.4-10.4); NEUT# 6.72 X1000 (1.4-6.5); NEUT% 63.7 % (42.2-75.2); PLT 354 X1000 (130-400); RBC 4.54 XMIL (4.7-6.1); RDW 14.3 % (11.5-14.5); WBC 10.54 X1000 (4.8-10.8)
[2018-12-07 07:03] LABS: AGAP 14; ALBUMIN 3.1 g/dL (3.5-5.0); ALKALINE PHOSPHATASE 129 U/L (32-122); BUN 7 mg/dL (8-22); CALCIUM 9.1 mg/dL (8.8-10.2); CHLORIDE 108 mmol/L (98-107); COSMO 287; CREATININE 0.6 mg/dL (0.7-1.2); ESTIMATED GFR > 60; GLUCOSE 109 mg/dL (70-104); GOT 29 U/L (10-34); GPT 19 U/L (10-44); POTASSIUM 2.9 mmol/L (3.5-5.1); SODIUM 145 mmol/L (136-145); TCO2 23 mmol/L (25-35); TOTAL PROTEIN 6.9 g/dL (6.3-8.3)
[2018-12-07] MEDS: PROTONIX PO SCH ×2 (09:03→20:29)
[2018-12-07] MEDS: THERA M PLUS PO SCH (09:03)
[2018-12-07] MEDS: NORVASC PO SCH (09:03)
[2018-12-07] MEDS: CARAFATE LIQUID PO SCH ×2 (09:04→20:29)
[2018-12-07] MEDS: LEXAPRO PO SCH (09:04)
[2018-12-07] MEDS: LYRICA PO SCH (09:04)
[2018-12-07] MEDS ORDERED: CLINDAMYCIN ONE (09:17)
[2018-12-07] MEDS ORDERED: D5W ONE (09:17)
[2018-12-07] MEDS: LACTULOSE PO SCH ×2 (09:28→20:29)
[2018-12-07] MEDS: POTASSIUM CHLORIDE 20 MEQ/SWI 20 MEQ/100 ML IVPB IV SCH ×2 (09:28→11:50)
[2018-12-07] MEDS: M.V.I.-12 10 ML, FOLIC ACID 1 MG, MAGNESIUM SULFATE 1 GM, THIAMINE 100 MG in NS 1,000 ML IV SCH (09:53)
[2018-12-07] MEDS: NS 1,000 ML IV SCH ×3 (11:49→22:47)
[2018-12-07] MEDS: SEROQUEL PO SCH (20:29)
--- NOTE | 2018-12-07 22:52 | PROGRESS NOTE ---
DATE: 12/07/2018 SUBJECTIVE: Patient is still confused, disoriented, although he does awaken at times and recognizes his . PHYSICAL EXAM: Vital signs: Temperature 98.1, pulse 74, respiratory rate 18, BP 183/96. General: Patient is confused, disoriented. He is in no respiratory distress. He is lying flatly in the bed. HEENT: Normocephalic. Neck: Supple. Cardiovascular: Regular rate. Chest: Clear, nonlabored. Abdomen: Soft, nondistended. Extremities: Moves all extremities. No edema. Neurologic: No focal neurological changes. He is still confused, disoriented. Does not answer questions nor follow commands. ASSESSMENT: 1. Alcohol withdrawal syndrome. 2. Escherichia coli, extended spectrum beta-lactamases negative urinary tract infection. 3. Hypokalemia. PLAN: The patient currently is on antibiotics. We will replace his potassium. Continue symptomatic treatment. Otherwise, I discussed with his that he is not in acute alcohol withdrawal at this point and that his confusion, although still present, is due to his withdrawal from alcohol. I attempted to answer her questions. I discussed with her that the actual metabolic encephalopathy from alcohol withdrawal can take weeks to months to resolve, but they typically do resolve. Discussed that he has to refrain from drinking in the future or this certainly may become permanent. We will continue him in the intensive care unit for now until he is stable enough to go to the floor. cc: Bill Mendoza MD
[2018-12-08] MEDS: ATIVAN IV PRN ×3 (01:44→20:20)
[2018-12-08] MEDS: NS 1,000 ML IV SCH (01:45)
[2018-12-08] MEDS: CLINDAMYCIN 900 MG/D5W 900 MG/50 ML IVPB IV SCH (03:12)
[2018-12-08] MEDS: OFIRMEV 1000 MG/ISOTONIC SOLN 1,000 MG/100 ML BOTTLE IV PRN ×2 (04:19→20:26)
[2018-12-08] MEDS: ZOSYN 3.375 GM in NS 50 ML IV SCH ×4 (04:20→22:34)
[2018-12-08 06:24] LABS: HEMOGLOBIN 13.1 g/dL (14.0-18.0); MCH 29.5 PG (27-31); MCHC 34.5 g/dL (33-37); MCV 85.6 FL (81-99); MPV 9.2 FL (7.4-10.4); RBC 4.44 XMIL (4.7-6.1); WBC 12.56 X1000 (4.8-10.8)
[2018-12-08] MEDS: PROTONIX PO SCH ×2 (06:38→20:21)
[2018-12-08 06:40] LABS: ESTIMATED GFR > 60
[2018-12-08 06:41] LABS: AGAP 14; ALBUMIN 3.2 g/dL (3.5-5.0); ALKALINE PHOSPHATASE 84 U/L (32-122); BUN 7 mg/dL (8-22); CALCIUM 9.1 mg/dL (8.8-10.2); CHLORIDE 100 mmol/L (98-107); COSMO 274; CREATININE 0.6 mg/dL (0.7-1.2); GLUCOSE 133 mg/dL (70-104); GOT 24 U/L (10-34); GPT 17 U/L (10-44); MAGNESIUM 1.4 mg/dL (1.5-2.7); SODIUM 137 mmol/L (136-145); TCO2 23 mmol/L (25-35)
[2018-12-08 06:44] LABS: POTASSIUM 2.5 mmol/L (3.5-5.1)
[2018-12-08] MEDS: LACTULOSE PO SCH ×2 (08:21→20:22)
[2018-12-08] MEDS: CARAFATE LIQUID PO SCH ×2 (08:23→20:21)
[2018-12-08] MEDS: CLINIMIX E 4.25%-5% SOLUTION 1,000 ML IV SCH ×2 (08:23→22:31)
[2018-12-08] MEDS: LYRICA PO SCH (08:23)
[2018-12-08] MEDS: THERA M PLUS PO SCH (08:23)
[2018-12-08] MEDS: NORVASC PO SCH (08:23)
[2018-12-08] MEDS: LEXAPRO PO SCH (08:23)
[2018-12-08] MEDS ORDERED: MAGNESIUM SULFATE 2 GM/S.W.I. 2 GM/50 ML IVPB IV ONE (08:41)
[2018-12-08] MEDS: POTASSIUM CHLORIDE 60 MEQ in NS 500 ML IV SCH ×2 (09:01→17:19)
--- NOTE | 2018-12-08 09:03 | PROGRESS NOTE ---
DATE: 12/08/2018 SUBJECTIVE: Patient continues to be confused even though he answered questions appropriately at times. He continues to be restless. He needed to have Ativan 1 mg yesterday IV. We are trying to also avoid sedating medication on this patient. OBJECTIVE: Vital Signs: Temperature 98.6 degrees, heart rate 78, respiratory rate 20, blood pressure 155/83, O2 saturation 100% on room air. General: This is a chronically ill-appearing, 68-year-old male, lying in bed, in no acute distress. Cardiovascular: S1 and S2 heard. No murmurs, gallops or rubs. Regular rate and rhythm. Respiratory: Clear bilaterally to auscultation. No work of breathing or using accessory muscles. Abdomen: Soft. Nontender to palpation. Bowel sounds present. No organomegaly. No signs of peritoneal irritation. Extremities: No clubbing, cyanosis, or edema. Peripheral pulses present in both legs. Neurological: The patient continues to be confused and disoriented at times. Sometimes he knows that he is in the hospital. Moves 4 extremities spontaneously. LABORATORY DATA: White cell count 12.50, hemoglobin 13.1, hematocrit 38.0, platelets 369,000. BMP remarkable for potassium 2.5 with creatinine 0.6. Magnesium 1.4. ASSESSMENT AND PLAN: 1. Alcohol withdrawal. 2. Escherichia coli urinary tract infection. 3. Hypokalemia. 4. Possible aspiration pneumonia. PLAN: 1. For alcohol withdrawal, we will continue to monitor this patient closely in the intensive care unit. The patient is on Ativan p.r.n. IV. According to nursing staff, patient has been very sedated in the last few days so we are going to try to use just as needed Ativan. 2. For Escherichia coli urinary tract infection, patient is on Zosyn because there was a suspicion also for aspiration pneumonia. Last x-ray from this patient is from December 04, so at this point, I am planning repeat an x-ray of the chest if there are any signs of aspiration, we will continue with antibiotics. If not, we will stop it. In case we stop Zosyn, we will start cefazolin for UTI. 3. For hypokalemia, we are going to provide 60 mEq of potassium IV and will recheck BMP tomorrow. 4. Of course, he needs to still remain hospitalized in the intensive care unit. cc: Jc Avendano MD MTDD
--- NOTE | 2018-12-08 09:20 | Diag Imaging Result Doc PS360 ---
EXAM: CHEST-PORTABLE - 12/08/2018 HISTORY: aspiration pna suspected TECHNIQUE: Portable chest COMPARISON: 12/04/2018 FINDINGS: Inspiration is mildly shallow. There is apparent small infiltrate at the left infrahilar region. The remainder the lungs appear clear. There is no pleural effusion or pneumothorax identified. Heart size appears to have decreased mildly compared to prior. IMPRESSION: Mildly shallow inspiration. Small infiltrate at left infrahilar region. Electronically signed by Champ Porter 12/08/2018 9:18 AM
[2018-12-08] MEDS: GEODON IM PRN (10:26)
[2018-12-08] MEDS: STERILE WATER INJ. INJ PRN (10:27)
[2018-12-08] MEDS: SEROQUEL PO SCH (20:21)
[2018-12-09] MEDS: OFIRMEV 1000 MG/ISOTONIC SOLN 1,000 MG/100 ML BOTTLE IV PRN ×2 (03:49→10:52)
[2018-12-09] MEDS: ZOSYN 3.375 GM in NS 50 ML IV SCH ×4 (03:49→22:03)
[2018-12-09] MEDS: ATIVAN IV PRN ×3 (05:04→20:09)
[2018-12-09 05:41] LABS: BASO# 0.05 X1000 (0.0-0.2); BASO% 0.5 % (0.0-0.8); EOS# 1.11 X1000 (0.0-0.7); EOS% 10.3 % (0.0-10.0); HEMATOCRIT 41.9 % (42.0-52.0); IMM GRAN# 0.03 X1000 (0.0-0.04); IMM GRAN% 0.3 % (0.0-0.5); LYMPH# 2.06 X1000 (1.2-3.4); LYMPH% 19.2 % (20.5-51.1); MCH 29.1 PG (27-31); MCHC 33.4 g/dL (33-37); MCV 87.1 FL (81-99); MONO# 0.85 X1000 (0.11-0.59); MONO% 7.9 % (1.7-9.3); MPV 9.1 FL (7.4-10.4); NEUT# 6.65 X1000 (1.4-6.5); NEUT% 61.8 % (42.2-75.2); PLT 434 X1000 (130-400); RBC 4.81 XMIL (4.7-6.1); RDW 14.9 % (11.5-14.5); WBC 10.75 X1000 (4.8-10.8)
[2018-12-09 06:04] LABS: AGAP 13; BUN 13 mg/dL (8-22); CALCIUM 9.3 mg/dL (8.8-10.2); CHLORIDE 107 mmol/L (98-107); COSMO 283; CREATININE 0.6 mg/dL (0.7-1.2); ESTIMATED GFR > 60; GLUCOSE 119 mg/dL (70-104); MAGNESIUM 1.7 mg/dL (1.5-2.7); PHOSPHORUS 3.8 mg/dL (2.7-4.5); POTASSIUM 3.4 mmol/L (3.5-5.1); SODIUM 141 mmol/L (136-145); TCO2 21 mmol/L (25-35)
[2018-12-09] MEDS: PROTONIX PO SCH ×2 (06:46→20:08)
[2018-12-09] MEDS: NORVASC PO SCH (10:52)
[2018-12-09] MEDS: LYRICA PO SCH (10:52)
[2018-12-09] MEDS: THERA M PLUS PO SCH (10:52)
[2018-12-09] MEDS: CARAFATE LIQUID PO SCH ×2 (10:53→20:08)
[2018-12-09] MEDS: LACTULOSE PO SCH ×2 (10:53→20:08)
[2018-12-09] MEDS: LEXAPRO PO SCH (10:53)
--- NOTE | 2018-12-09 10:53 | PROGRESS NOTE ---
DATE: 12/09/2018 SUBJECTIVE: Patient continues to be awake and answer some questions appropriately but still confused at times. OBJECTIVE: Vital Signs: Temperature 98.4, heart rate 64, respiratory 19, blood pressure 175/82. O2 saturation 96%. General: This is a chronically ill appearing, 68-year-old male, lying in bed, in no acute distress. Cardiovascular: S1, S2 heard. No murmurs, gallops, or rubs. Regular rate and rhythm. Respiratory: Clear bilaterally to auscultation. No work of breathing or using accessory muscles. Abdomen: Soft, nontender to palpation. Bowel sounds present. No organomegaly. No signs of peritoneal irritation. Extremities: No clubbing, cyanosis, or edema. Peripheral pulses present in both legs. Neurological: Patient continues to be confused and disoriented at times. He reports that he is in the hospital but then he becomes restless. He moves 4 extremities spontaneously. LABORATORY DATA: Reviewed. Potassium is 3.4. ASSESSMENT AND PLAN: 1. Alcohol withdrawal. We will continue to monitor this patient closely. He is receiving Ativan p.r.n. We are trying to avoid sedating medication but at some point patient becomes restless, so we need to use p.o. We will continue to monitor this patient closely in the intensive care unit. 2. Escherichia coli urinary tract infection. The sensitivity shows that this bacteria is sensitive to cefazolin. I think will switch also to Zosyn we will continue with the same management. 3. Aspiration pneumonia. The x-ray from yesterday shows still small infiltrate so we will continue with Zosyn by now. DISPOSITION: We will continue to monitor this patient in intensive care unit. cc: Jc Avendano MD
[2018-12-09] MEDS: POTASSIUM CHLORIDE 20 MEQ/SWI 20 MEQ/100 ML IVPB IV SCH ×2 (10:54→13:36)
[2018-12-09] MEDS: CLINIMIX E 4.25%-5% SOLUTION 1,000 ML IV SCH ×2 (11:13→22:03)
[2018-12-09] MEDS: URISPAS PO SCH ×2 (13:36→21:57)
[2018-12-09] MEDS: SEROQUEL PO SCH (20:08)
[2018-12-10] MEDS: OFIRMEV 1000 MG/ISOTONIC SOLN 1,000 MG/100 ML BOTTLE IV PRN ×2 (01:00→11:14)
[2018-12-10] MEDS: CLINIMIX E 4.25%-5% SOLUTION 1,000 ML IV SCH ×2 (01:01→11:30)
[2018-12-10] MEDS: ZOSYN 3.375 GM in NS 50 ML IV SCH ×4 (04:46→21:45)
[2018-12-10] MEDS: URISPAS PO SCH ×3 (04:46→20:00)
[2018-12-10] MEDS: ATIVAN IV PRN (04:47)
[2018-12-10 06:01] LABS: BASO# 0.09 X1000 (0.0-0.2); BASO% 0.7 % (0.0-0.8); EOS# 1.11 X1000 (0.0-0.7); EOS% 9.2 % (0.0-10.0); HEMATOCRIT 42.6 % (42.0-52.0); HEMOGLOBIN 14.3 g/dL (14.0-18.0); IMM GRAN# 0.03 X1000 (0.0-0.04); IMM GRAN% 0.2 % (0.0-0.5); LYMPH# 2.26 X1000 (1.2-3.4); LYMPH% 18.7 % (20.5-51.1); MCH 29.4 PG (27-31); MCHC 33.6 g/dL (33-37); MCV 87.5 FL (81-99); MONO# 0.95 X1000 (0.11-0.59); MONO% 7.9 % (1.7-9.3); MPV 9.4 FL (7.4-10.4); NEUT# 7.64 X1000 (1.4-6.5); NEUT% 63.3 % (42.2-75.2); PLT 502 X1000 (130-400); RBC 4.87 XMIL (4.7-6.1); RDW 14.9 % (11.5-14.5); WBC 12.08 X1000 (4.8-10.8)
[2018-12-10 06:32] LABS: AGAP 13; BUN 13 mg/dL (8-22); CHLORIDE 104 mmol/L (98-107); COSMO 276; CREATININE 0.5 mg/dL (0.7-1.2); ESTIMATED GFR > 60; GLUCOSE 132 mg/dL (70-104); MAGNESIUM 1.7 mg/dL (1.5-2.7); PHOSPHORUS 3.8 mg/dL (2.7-4.5); SODIUM 137 mmol/L (136-145); TCO2 20 mmol/L (25-35)
[2018-12-10] MEDS: NORVASC PO SCH (09:00)
[2018-12-10] MEDS: THERA M PLUS PO SCH (09:00)
[2018-12-10] MEDS: PROTONIX PO SCH ×2 (09:00→20:00)
[2018-12-10] MEDS: LYRICA PO SCH (09:00)
[2018-12-10] MEDS: LEXAPRO PO SCH (09:00)
[2018-12-10] MEDS: CARAFATE LIQUID PO SCH ×2 (09:00→20:00)
[2018-12-10] MEDS: LACTULOSE PO SCH ×2 (09:01→20:00)
--- NOTE | 2018-12-10 10:25 | PROGRESS NOTE ---
DATE: 12/10/2018 SUBJECTIVE: The patient continues to be confused. Does not answer my questions appropriately. He is confused regarding place. OBJECTIVE: Vital Signs: Temperature 98.1 degrees, heart rate 75 respiratory rate 22, blood pressure 134/81. O2 saturation 98% on room air. General: This is a chronically ill appearing, 68-year-old male, appearing older than his stated age lying in bed, in no acute distress. Cardiovascular: S1, S2 heard. No murmurs, gallops, or rubs. Regular rate and rhythm. Respiratory: Clear bilaterally to auscultation. No work of breathing. No use of accessory muscles. Abdomen: Soft, nontender to palpation. Bowel sounds present. No organomegaly. No signs of peritoneal irritation. Extremities: No clubbing cyanosis or edema. Peripheral pulses present in both legs. Neurologic: Patient continues to be confused and disoriented. He is really restless time. Moves all 4 extremities. LABORATORY DATA: Reviewed. ASSESSMENT AND PLAN: 1. Alcohol withdrawal. We will continue to monitor this patient closely. The patient receiving Ativan p.r.n. I think part of his confusion is also because of possible cognitive impairment because of chronic alcohol consumption. In any case, we will continue to monitor this patient closely. 2. Urinary tract infection Escherichia coli sensitive to Zosyn. We will continue with the same management. Today is day number six for this patient. 3. Aspiration pneumonia. We will continue with Zosyn. X-ray still shows some infiltrate but no white cell count or fever. We will continue with same management. 4. We will continue to monitor this patient in intensive care unit. cc: MD LUIZA Workman
[2018-12-10] MEDS ORDERED: BENTYL PO PRN (11:12)
[2018-12-10] MEDS: GEODON IM PRN (20:00)
[2018-12-10] MEDS: SEROQUEL PO SCH (20:00)
[2018-12-10] MEDS: STERILE WATER INJ. INJ PRN (20:01)
[2018-12-11] MEDS: CLINIMIX E 4.25%-5% SOLUTION 1,000 ML IV SCH ×2 (02:01→16:06)
[2018-12-11] MEDS: ZOSYN 3.375 GM in NS 50 ML IV SCH ×3 (05:29→20:56)
[2018-12-11] MEDS: URISPAS PO SCH ×3 (05:29→20:56)
[2018-12-11] MEDS: PROTONIX PO SCH ×2 (06:36→20:56)
[2018-12-11 06:50] LABS: BASO# 0.09 X1000 (0.0-0.2); BASO% 0.6 % (0.0-0.8); EOS# 0.73 X1000 (0.0-0.7); EOS% 5.1 % (0.0-10.0); HEMATOCRIT 46.6 % (42.0-52.0); HEMOGLOBIN 15.3 g/dL (14.0-18.0); IMM GRAN# 0.04 X1000 (0.0-0.04); IMM GRAN% 0.3 % (0.0-0.5); LYMPH# 2.26 X1000 (1.2-3.4); LYMPH% 15.9 % (20.5-51.1); MCH 29.4 PG (27-31); MCHC 32.8 g/dL (33-37); MCV 89.6 FL (81-99); MONO# 1.71 X1000 (0.11-0.59); MONO% 12.1 % (1.7-9.3); MPV 9.6 FL (7.4-10.4); NEUT# 9.35 X1000 (1.4-6.5); PLT 548 X1000 (130-400); RDW 15.2 % (11.5-14.5); WBC 14.18 X1000 (4.8-10.8)
[2018-12-11 07:13] LABS: AGAP 19; BUN 15 mg/dL (8-22); CALCIUM 9.9 mg/dL (8.8-10.2); CHLORIDE 105 mmol/L (98-107); COSMO 282; CREATININE 0.6 mg/dL (0.7-1.2); ESTIMATED GFR > 60; GLUCOSE 132 mg/dL (70-104); MAGNESIUM 1.9 mg/dL (1.5-2.7); SODIUM 140 mmol/L (136-145); TCO2 16 mmol/L (25-35)
[2018-12-11] MEDS: CARAFATE LIQUID PO SCH ×2 (09:47→20:56)
[2018-12-11] MEDS: THERA M PLUS PO SCH (09:48)
[2018-12-11] MEDS: LYRICA PO SCH (09:48)
[2018-12-11] MEDS: LEXAPRO PO SCH (09:48)
[2018-12-11] MEDS: NORVASC PO SCH (09:48)
[2018-12-11] MEDS: LACTULOSE PO SCH (10:08)
--- NOTE | 2018-12-11 11:44 | PROGRESS NOTE ---
DATE: 12/11/2018 SUBJECTIVE: The patient definitely is more awake today, answering some questions appropriately. Family, and sisters at bedside. OBJECTIVE: Vital Signs: Temperature 97.1 degrees, heart rate 90, respiratory rate 22, blood pressure 110/73, O2 saturation 95% on room air. General Examination: This is a chronically ill- appearing, 68-year-old male, lying in bed, in no acute distress. HEENT: Head is normocephalic and atraumatic. Neck: No JVD noted. No carotid bruit. Cardiovascular: S1, S2 heard. No murmurs, gallops, or rubs. Regular rate and rhythm. Respiratory: Clear bilaterally to auscultation. No work of breathing or using accessory muscles. Abdomen: Soft, nontender to palpation. Bowel sounds present. No organomegaly. Extremities: No clubbing, cyanosis, or edema. Peripheral pulses present in both legs. Neurological: The patient is a little bit slow, confused at times but answers questions appropriately today. He looks to be more oriented today. He is less restless today. Moves 4 extremities. LABORATORY DATA: Reviewed. ASSESSMENT AND PLAN: 1. Alcohol withdrawal. The patient is improving today. He is more awake today. I think this confusion is not only because of alcohol withdrawal but also because of some chronic cognitive impairment secondary to chronic alcohol consumption. We will continue to monitor this patient closely. We will continue with Ativan p.r.n. 2. Urinary tract infection, Escherichia coli. We will continue with Zosyn. Today is #7 for this patient. 3. Aspiration pneumonia. Because the x-ray 3 days ago showed still some infiltrate, even though there is not an elevated white cell count of fever, we will continue with the same medications, Zosyn. Today is #7 for this patient. 4. Disposition. We will continue to monitor the patient closely in the intensive care unit. 5. cooler room worker has been notified that the patient will need rehab facility. cc: Jc Avendano MD MTDD
[2018-12-11] MEDS: OFIRMEV 1000 MG/ISOTONIC SOLN 1,000 MG/100 ML BOTTLE IV PRN (14:04)
[2018-12-11] MEDS: SEROQUEL PO SCH (20:56)
[2018-12-12] MEDS: ZOSYN 3.375 GM in NS 50 ML IV SCH ×4 (02:25→20:40)
[2018-12-12 06:02] LABS: BASO# 0.07 X1000 (0.0-0.2); BASO% 0.6 % (0.0-0.8); EOS# 0.75 X1000 (0.0-0.7); EOS% 6.9 % (0.0-10.0); HEMATOCRIT 43.6 % (42.0-52.0); HEMOGLOBIN 13.9 g/dL (14.0-18.0); IMM GRAN# 0.04 X1000 (0.0-0.04); IMM GRAN% 0.4 % (0.0-0.5); LYMPH% 24.8 % (20.5-51.1); MCH 28.5 PG (27-31); MCHC 31.9 g/dL (33-37); MCV 89.5 FL (81-99); MONO# 1.32 X1000 (0.11-0.59); MONO% 12.1 % (1.7-9.3); MPV 9.6 FL (7.4-10.4); NEUT# 5.99 X1000 (1.4-6.5); NEUT% 55.2 % (42.2-75.2); PLT 540 X1000 (130-400); RBC 4.87 XMIL (4.7-6.1); RDW 15.3 % (11.5-14.5); WBC 10.87 X1000 (4.8-10.8)
[2018-12-12] MEDS: URISPAS PO SCH ×3 (06:33→20:40)
[2018-12-12 06:36] LABS: AGAP 12; BUN 23 mg/dL (8-22); CHLORIDE 106 mmol/L (98-107); COSMO 283; CREATININE 0.8 mg/dL (0.7-1.2); ESTIMATED GFR > 60; GLUCOSE 122 mg/dL (70-104); PHOSPHORUS 5.2 mg/dL (2.7-4.5); POTASSIUM 4.3 mmol/L (3.5-5.1); SODIUM 139 mmol/L (136-145); TCO2 21 mmol/L (25-35)
[2018-12-12] MEDS: PROTONIX PO SCH ×2 (07:13→20:41)
[2018-12-12] MEDS: CLINIMIX E 4.25%-5% SOLUTION 1,000 ML IV SCH ×2 (07:14→20:49)
[2018-12-12] MEDS: CARAFATE LIQUID PO SCH ×2 (08:36→20:40)
[2018-12-12] MEDS: LEXAPRO PO SCH (08:37)
[2018-12-12] MEDS: LYRICA PO SCH (08:37)
[2018-12-12] MEDS: NORVASC PO SCH (08:38)
[2018-12-12] MEDS: THERA M PLUS PO SCH (08:38)
--- NOTE | 2018-12-12 10:01 | PROGRESS NOTE ---
DATE: 12/12/2018 SUBJECTIVE: Patient denies having any acute complaints. He is alert and oriented this morning and feels very good with good appetite. OBJECTIVE: Vital Signs: Temperature 97.2 degrees, pulse 72 per minute, respiratory rate 18 per minute, blood pressure 150/74, pulse oximetry 95% on room air. General: Patient is alert and oriented x3. He does not appear to be in any acute distress. Cardiovascular System: First and second heart sounds are audible without any murmurs or gallops. Respiratory System: No respiratory distress noted. Bilateral lung air entry is good without any rales or rhonchi. Gastrointestinal System: Abdomen is soft and nondistended. Normal bowel sounds are present. Musculoskeletal System: No deformities are present. There is generalized muscle weakness secondary to deconditioning, however. DIAGNOSTIC DATA: CBC shows WBC count of 10.87. Rest of the CBC is nondiagnostic. His basic metabolic panel done this morning is nondiagnostic. IMPRESSION: 1. Alcohol withdrawal that has not improved. 2. Urinary tract infection for which the patient has been on Zosyn which will be continued at least until Friday morning. 3. Aspiration pneumonia that has been mild and appears to have resolved. He is already getting Zosyn for urinary tract infection that should cover any pulmonary infection as well. 4. Hypertension that has been stable. PLAN: The patient will be continued here in the intensive care unit since he gets somewhat disoriented at times. We will continue with supportive care, and he needs to be transferred out to rehab some time early next week because of generalized deconditioning. cc: Estefani Samayoa MD
[2018-12-12] MEDS: SEROQUEL PO SCH (20:40)
[2018-12-12] MEDS: OFIRMEV 1000 MG/ISOTONIC SOLN 1,000 MG/100 ML BOTTLE IV PRN (20:49)
[2018-12-13] MEDS: ZOSYN 3.375 GM in NS 50 ML IV SCH ×4 (02:05→20:52)
[2018-12-13] MEDS: ATIVAN IV PRN (02:23)
[2018-12-13] MEDS: URISPAS PO SCH ×3 (05:54→20:53)
[2018-12-13] MEDS: PROTONIX PO SCH ×2 (06:00→20:52)
[2018-12-13 06:24] LABS: BASO# 0.06 X1000 (0.0-0.2); BASO% 0.5 % (0.0-0.8); EOS# 0.81 X1000 (0.0-0.7); EOS% 7.1 % (0.0-10.0); HEMATOCRIT 41.7 % (42.0-52.0); HEMOGLOBIN 13.5 g/dL (14.0-18.0); IMM GRAN# 0.03 X1000 (0.0-0.04); IMM GRAN% 0.3 % (0.0-0.5); LYMPH# 2.12 X1000 (1.2-3.4); LYMPH% 18.7 % (20.5-51.1); MCH 29.1 PG (27-31); MCHC 32.4 g/dL (33-37); MCV 89.9 FL (81-99); MONO# 1.32 X1000 (0.11-0.59); MONO% 11.6 % (1.7-9.3); MPV 9.8 FL (7.4-10.4); NEUT% 61.8 % (42.2-75.2); PLT 468 X1000 (130-400); RBC 4.64 XMIL (4.7-6.1); RDW 14.9 % (11.5-14.5); WBC 11.34 X1000 (4.8-10.8)
[2018-12-13 06:57] LABS: AGAP 11; BUN 21 mg/dL (8-22); CALCIUM 9.7 mg/dL (8.8-10.2); CHLORIDE 105 mmol/L (98-107); COSMO 280; CREATININE 0.6 mg/dL (0.7-1.2); ESTIMATED GFR > 60; GLUCOSE 130 mg/dL (70-104); PHOSPHORUS 3.5 mg/dL (2.7-4.5); POTASSIUM 3.8 mmol/L (3.5-5.1); SODIUM 138 mmol/L (136-145); TCO2 23 mmol/L (25-35)
--- NOTE | 2018-12-13 08:25 | Diag Imaging Result Doc PS360 ---
EXAM: CT HEAD W/O CONTRAST 12/13/2018 HISTORY: injury TECHNIQUE: This exam was performed using automated exposure control, adjustment of mA or kV according to patient size, and/or use of iterative reconstruction technique. COMMENT: There is mild generalized cerebral atrophy. There is no evidence of mass effect, bleed, or abnormal extra-axial fluid collection. There are small lacunae present in the basal ganglia and internal capsule regions on the right. There is opacification of the visualized portion of the left maxillary sinus. 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 The calvarium is intact. There are no previous studies. IMPRESSION: Left maxillary sinusitis. No evidence of acute intracranial disease. Chronic microvascular ischemic changes as described. Electronically signed by Elgin Krueger 12/13/2018 8:23 AM
[2018-12-13] MEDS: CARAFATE LIQUID PO SCH ×2 (08:55→20:52)
[2018-12-13] MEDS: LEXAPRO PO SCH (08:55)
[2018-12-13] MEDS: LYRICA PO SCH (08:55)
[2018-12-13] MEDS: THERA M PLUS PO SCH (08:55)
[2018-12-13] MEDS: NORVASC PO SCH (08:55)
--- NOTE | 2018-12-13 10:31 | PROGRESS NOTE ---
DATE: 12/13/2018 SUBJECTIVE: According to the nursing staff, this morning, the patient had a fall. He was sitting on the edge of the bed and fell. He did not lose consciousness. He reports remembering all the episode. A CT scan of the head was ordered and returned normal. OBJECTIVE: Vital Signs: Temperature 98.6 degrees, heart rate 81, respiratory rate 22, blood pressure 144/85, O2 saturation 96% on room air. General Examination: This is a chronically ill- appearing, 68-year-old, male, lying in bed, in no acute distress. Cardiovascular Examination: S1 and S2 heard. No murmurs, gallops, or rubs. Regular rate and rhythm. Respiratory Examination: Clear bilaterally to auscultation. No work of breathing or using accessory muscles. Abdomen: Soft, nontender to palpation. Bowel sounds present. No organomegaly. Extremities: No clubbing, cyanosis, or edema. Peripheral pulses present in both legs. Neurological Examination: The patient is definitely more awake, although sometimes he got confused. Moves 4 extremities spontaneously. Laboratory Data: Reviewed. ASSESSMENT AND PLAN: 1. Alcohol withdrawal. Even though this patient got confused and fell this morning, overall, he is doing fine. Today, we are going to remove restraints for him and see how he does in the next 24 hours. We will monitor him here in the intensive care unit. If he is doing fine, we will move him tomorrow to a regular floor and we will start looking for a rehab bed for him. 2. Urinary tract infection secondary to Escherichia coli. We will continue with Zosyn. Today is day #9 for this patient. We will stop antibiotics on day 10. 3. Aspiration pneumonia. Clinically, he is doing fine. White cell count is okay. No fever. Receiving Zosyn for 9 days. Tomorrow, we will stop antibiotics. 4. Disposition. We will continue to monitor this patient closely here in the intensive care unit. If he is more calmed down, we will transfer him to a regular room today and we will start looking for a rehab bed for him. cc: Jc Avendano MD MTDD
[2018-12-13] MEDS: OFIRMEV 1000 MG/ISOTONIC SOLN 1,000 MG/100 ML BOTTLE IV PRN (11:15)
[2018-12-13] MEDS: CLINIMIX E 4.25%-5% SOLUTION 1,000 ML IV SCH (11:15)
[2018-12-13] MEDS: SEROQUEL PO SCH (20:52)
[2018-12-14] MEDS: ZOSYN 3.375 GM in NS 50 ML IV SCH ×2 (01:50→08:17)
[2018-12-14] MEDS: CLINIMIX E 4.25%-5% SOLUTION 1,000 ML IV SCH ×2 (01:51→12:24)
[2018-12-14] MEDS: ATIVAN IV PRN (02:50)
[2018-12-14] MEDS: URISPAS PO SCH ×3 (05:00→20:50)
[2018-12-14] MEDS: PROTONIX PO SCH ×2 (06:13→20:51)
[2018-12-14 06:31] LABS: BASO# 0.06 X1000 (0.0-0.2); BASO% 0.6 % (0.0-0.8); EOS# 0.54 X1000 (0.0-0.7); HEMATOCRIT 44.5 % (42.0-52.0); HEMOGLOBIN 14.5 g/dL (14.0-18.0); IMM GRAN# 0.02 X1000 (0.0-0.04); IMM GRAN% 0.2 % (0.0-0.5); LYMPH% 18.6 % (20.5-51.1); MCH 29.2 PG (27-31); MCHC 32.6 g/dL (33-37); MCV 89.5 FL (81-99); MONO# 1.23 X1000 (0.11-0.59); MONO% 11.5 % (1.7-9.3); MPV 9.6 FL (7.4-10.4); NEUT# 6.88 X1000 (1.4-6.5); NEUT% 64.1 % (42.2-75.2); PLT 488 X1000 (130-400); RBC 4.97 XMIL (4.7-6.1); RDW 14.6 % (11.5-14.5); WBC 10.73 X1000 (4.8-10.8)
[2018-12-14 06:44] LABS: AGAP 11; BUN 19 mg/dL (8-22); CALCIUM 9.9 mg/dL (8.8-10.2); CHLORIDE 104 mmol/L (98-107); COSMO 278; CREATININE 0.7 mg/dL (0.7-1.2); ESTIMATED GFR > 60; GLUCOSE 133 mg/dL (70-104); SODIUM 137 mmol/L (136-145); TCO2 22 mmol/L (25-35)
[2018-12-14] MEDS: LYRICA PO SCH (08:17)
[2018-12-14] MEDS: THERA M PLUS PO SCH (08:17)
[2018-12-14] MEDS: CARAFATE LIQUID PO SCH ×2 (08:17→20:48)
[2018-12-14] MEDS: NORVASC PO SCH (08:17)
[2018-12-14] MEDS: LEXAPRO PO SCH (08:17)
--- NOTE | 2018-12-14 10:29 | PROGRESS NOTE ---
DATE: 12/14/2018 SUBJECTIVE: According to the nursing staff, the patient has been definitely more calmed down. Not in any restraints during the last 24 hours. The patient, upon my examination, is definitely looking much better, with good spirits, feeling okay, oriented. OBJECTIVE: Vital Signs: Temperature 98.1 degrees, heart rate 84, respiratory rate 20, blood pressure 105/72, O2 saturation 95% on room air. General Examination: This is a chronically ill- appearing, 68-year-old, male, lying in bed, in no acute distress. Cardiovascular Examination: S1 and S2 heard. No murmurs, gallops, or rubs. Regular rate and rhythm. Respiratory Examination: Clear bilaterally to auscultation. No work of breathing or using accessory muscles. Abdomen: Soft, nontender to palpation. Bowel sounds present. No organomegaly. Extremities: No clubbing, cyanosis, or edema. Peripheral pulses present in both legs. Neurological Examination: The patient is definitely more awake and alert in the last 3 days. Moves 4 extremities spontaneously. Speech is coherent. Laboratory Data: Reviewed. ASSESSMENT AND PLAN: 1. Alcohol withdrawal. Patient definitely is getting better. He has been out of restraints for the last 24 hours. At this point, I am planning to send him to a regular floor today. He has received so far, in the last 24 hours, one dose of Ativan at night. We will continue to monitor. 2. Urinary tract infection secondary to Escherichia coli. The patient has received Zosyn for the last 10 days so we are going to stop antibiotics today. 3. Aspiration pneumonia. Clinically, this patient is doing fine. White cell count is normal. Not spiking any fever so, at this point, we will stop Zosyn that he has received for the last 10 days. 4. Disposition. The patient is being evaluated by physical therapy and occupational therapy, and will be transferred to a rehab facility once we have a bed. The patient is medically stable. cc: Jc Avendano MD
[2018-12-14] MEDS: SEROQUEL PO SCH (20:53)
[2018-12-15] MEDS: URISPAS PO SCH ×3 (06:09→20:53)
[2018-12-15] MEDS: PROTONIX PO SCH ×2 (06:10→20:53)
[2018-12-15 06:38] LABS: BASO# 0.08 X1000 (0.0-0.2); BASO% 0.9 % (0.0-0.8); EOS# 0.42 X1000 (0.0-0.7); EOS% 4.6 % (0.0-10.0); HEMOGLOBIN 14.5 g/dL (14.0-18.0); IMM GRAN# 0.02 X1000 (0.0-0.04); IMM GRAN% 0.2 % (0.0-0.5); LYMPH# 2.38 X1000 (1.2-3.4); LYMPH% 25.8 % (20.5-51.1); MCH 29.5 PG (27-31); MCV 89.6 FL (81-99); MONO# 0.94 X1000 (0.11-0.59); MONO% 10.2 % (1.7-9.3); MPV 9.8 FL (7.4-10.4); NEUT# 5.37 X1000 (1.4-6.5); NEUT% 58.3 % (42.2-75.2); PLT 526 X1000 (130-400); RBC 4.91 XMIL (4.7-6.1); RDW 14.7 % (11.5-14.5); WBC 9.21 X1000 (4.8-10.8)
[2018-12-15 06:53] LABS: AGAP 12; BUN 22 mg/dL (8-22); CHLORIDE 103 mmol/L (98-107); COSMO 282; CREATININE 0.7 mg/dL (0.7-1.2); ESTIMATED GFR > 60; GLUCOSE 114 mg/dL (70-104); POTASSIUM 3.8 mmol/L (3.5-5.1); SODIUM 139 mmol/L (136-145); TCO2 24 mmol/L (25-35)
[2018-12-15] MEDS: LEXAPRO PO SCH (08:25)
[2018-12-15] MEDS: CARAFATE LIQUID PO SCH ×2 (08:25→20:52)
[2018-12-15] MEDS: NORVASC PO SCH (08:26)
[2018-12-15] MEDS: LYRICA PO SCH (08:26)
[2018-12-15] MEDS: THERA M PLUS PO SCH (08:26)
--- NOTE | 2018-12-15 19:51 | PROGRESS NOTE ---
DATE: 12/15/2018 SUBJECTIVE: Patient is very pleasant today. He answers questions. He states he is still fatigued and tired. Denies any other complaints. OBJECTIVE: Vital signs: Temperature 97.8, pulse 68, respiratory rate 18, BP 115/70. General: Patient is markedly improved from when I last saw him a week ago. He is pleasant. He is alert. He is able to answer questions, all of which is a marked improvement from his previous sedated self. HEENT: Normocephalic. Neck: Supple. Cardiovascular: Regular rate. Chest: Clear. Abdomen: Soft. Extremities: Moves all extremities. ASSESSMENT: 1. Acute metabolic encephalopathy secondary to alcoholic hallucinosis and alcohol withdrawal, all of which have improved. 2. Urinary tract infection, resolved. 3. Aspiration pneumonia, resolved. 4. Adult failure to thrive with generalized weakness. PLAN: We will continue physical therapy and continue searching for rehab bed. Hopefully he can transition to rehab soon. cc: Bill Mendoza MD
[2018-12-15] MEDS: SEROQUEL PO SCH (20:53)
[2018-12-16] MEDS: URISPAS PO SCH (05:14)
[2018-12-16] MEDS: PROTONIX PO SCH (06:09)
[2018-12-16 07:23] VITALS: BP 109/63
[2018-12-16] MEDS: LYRICA PO SCH (09:10)
[2018-12-16] MEDS: CARAFATE LIQUID PO SCH (09:10)
[2018-12-16] MEDS: LEXAPRO PO SCH (09:10)
[2018-12-16] MEDS: THERA M PLUS PO SCH (09:11)
[2018-12-16] MEDS: NORVASC PO SCH (09:11)
--- NOTE | 2018-12-16 09:58 | DISCHARGE SUMMARY ---
ADMISSION DATE: 11/28/2018 DISCHARGE DATE: 12/16/2018 CONSULTATIONS: None. PERTINENT PROCEDURES: 1. Abdomen and pelvis CT, incidental nonacute findings, no definite acute pathology. 2. Abdominal ultrasound, no cholelithiasis. 3. Head CT, left maxillary sinusitis, no evidence of acute intracranial disease, chronic microvascular changes noted. DISCHARGE DIAGNOSES: 1. Acute metabolic encephalopathy secondary to alcoholization and alcohol withdrawal, all of which have improved. 2. Urinary tract infection, resolved. 3. Aspiration pneumonia, resolved. 4. Adult failure to thrive with generalized weakness. The patient has been working with physical therapy and will be discharged to rehab. 5. Hypertension. 6. Situational anxiety and depression. 7. Insomnia. 8. Allergic rhinitis. 9. Gastroesophageal reflux disease. 10. Chronic obstructive pulmonary disease. HOSPITAL COURSE: Briefly, Mr. Dai is a 68-year-old gentleman who presented to the ED, was complaining of abdominal pain associated with nausea, vomiting, and diarrhea for several hours' duration. He was drinking beer 2 hours prior to his arrival and continued to have the same symptoms, so he came to the ED to be evaluated. He was found to be in alcohol withdrawal, initially admitted overnight to the medical/surgical floor, then transferred to the ICU for agitation for which he had been on Ativan drip and had to be placed in wrist restraints. He was initiated on IV multivitamins as well as Librium and normal saline. He remained in the ICU for several days on Ativan drip secondary to his alcohol withdrawal. He was treated for urinary tract infection as well as aspiration pneumonia. Mr. Dai's symptoms did improve. He was able to come out of restraints and move out of the ICU to the regular floor. He was initiated with physical therapy and occupational therapy and at the recommendation of physical rehab, will be discharged to a rehabilitation facility today. VITAL SIGNS: Temperature is 98.2 degrees, heart rate 64, respirations 18, blood pressure 109/63, O2 is 97% on room air. HOME MEDICATIONS: 1. Hydroxyzine 50 mg p.o. q.6 hours. 2. Norvasc 10 mg p.o. daily. 3. Antivert 12.5 mg p.o. t.i.d. p.r.n. dizziness. 4. Ativan 10 mg p.o. q.a.m. 5. Ativan 1 tablet p.o. q.p.m. 6. Desyrel 100 to 200 mg p.o. at bedtime. 7. Flonase 2 sprays nasal daily p.r.n. 8. Lactulose 15 mL p.o. b.i.d. 9. Lexapro 10 mg p.o. daily. 10. Lyrica 150 mg p.o. daily. 11. Protonix 40 mg p.o. daily. 12. Seroquel 50 mg p.o. at bedtime. 13. Carafate 1 tablet p.o. b.i.d. 14. Albuterol sulfate inhaler 2 puffs inhaled q.4 to q.6 hours p.r.n. shortness of breath. 15. Urispas 200 mg p.o. q.8 hours. 16. Bentyl 10 mg p.o. t.i.d. p.r.n. abdominal pain. FOLLOWUP: Mr. Dai is being discharged to rehab today. He is to continue with alcohol abstinence, take all medications as prescribed, continue working with physical therapy and can return to the ED or call 911 for any worsening of symptoms. Dictated by ZORAIDA Urrutia for Bill Mendoza MD cc: MD Yoel Keith
--- NOTE | 2018-12-17 08:35 | DISCHARGE SUMMARY ---
ADMISSION DATE: 11/28/2018 DISCHARGE DATE: 12/16/2018 DISCHARGE DIAGNOSES: 1. Alcohol abuse, withdrawal, and stabilization. 2. Urinary tract infection secondary to Escherichia coli, resolved. 3. Aspiration pneumonia, resolved. 4. Alcoholic hallucinosis, resolved. 5. Others. CONSULTATIONS: None. PROCEDURES: None. BRIEF HOSPITAL COURSE: The patient is a 68-year-old male who presented to the hospital. Unfortunately, he had stopped drinking prior to coming to the hospital and went into withdrawal. He was in the ICU for several days secondary to confusion, disorientation, agitation. He was placed on Ativan at one point. Thankfully, this was weaned off. He was switched over to Librium, which also has been weaned off. He was confused, disoriented, and therefore had a prolonged ICU stay. Currently, he is dramatically improved. He is able to ambulate with minimal assistance. He is eating a full breakfast and lunch. He is alert and oriented. Speech is regular. Memory appears intact and his baseline. DISPOSITION: The patient will be discharged home. He actually has improved mentally and physically. He was able to ambulate. We had initially planned to look for rehab beds, although currently he is ambulating well enough to go home. Discussed the use of naltrexone. Greater than 30 minutes were spent in total care. cc: Bill Mendoza MD
== END 2018-12-16 11:50 | DRG 896 ==
LOC: P.ED 17:46 → INTOOBSV 23:17 → OBSVTOIN 23:17 → P.MEDSURG 23:17 → SUATTDRO 23:17 → P.ICU 11-29 12:18 → P.MEDSURG 12-14 12:47
PROVIDERS: ATTEND Family Medicine